=== PATIENT | female | born 1950 | race Caucasian/White ===

== ENCOUNTER → 2016-12-21 | Outpatient (CLI) | payer MEDICARE ==
--- NOTE | 2016-12-22 10:00 | MM ---
Reason for exam: screening (asymptomatic). Last mammogram was performed 1 year ago. History: Patient is postmenopausal. Family history of breast cancer in mother at age 57. Physical Findings: A clinical breast exam by your physician is recommended on an annual basis and results should be correlated with mammographic findings. MG 3D Screening Mammo W/Cad Bilateral CC and MLO view(s) were taken. Prior study comparison: December 20, 2015, bilateral MG screening mammo w CAD. October 03, 2014, bilateral MG screening mammo w CAD. The breast tissue is heterogeneously dense. This may lower the sensitivity of mammography. Finding: There are typically benign calcifications in both breasts. No significant changes in finding since December 20, 2015 and October 03, 2014. ASSESSMENT: Benign, BI-RAD 2 RECOMMENDATION: Routine screening mammogram of both breasts in 1 year.
== END | disposition home or self-care (01) ==
LOC: RADMAMWWP 11:13
PROVIDERS: ATTEND Family Medicine
DX: Z12.31 Encounter for screening mammogram for malignant neoplasm of breast (principal)
CPT/HCPCS: 77063; G0202

== ENCOUNTER → 2017-03-19 | Outpatient (CLI) | payer MEDICARE ==
--- NOTE | 2017-03-19 13:41 | US ---
EXAMINATION TYPE: US abdomen complete DATE OF EXAM: 03/19/2017 COMPARISON: NONE CLINICAL HISTORY: R10.84 Generalized Abdominal Pain. Pain EXAM MEASUREMENTS: Liver Length: 15.9 cm Gallbladder Wall: Surgically absent cm CBD: 0.25 cm Spleen: 13 cm Right Kidney: 9.3 x 5.3 x 4.3 cm Left Kidney: 11.1 x 5.6 x 4.7 cm x Pancreas: Obscured by bowel gas Liver: wnl Gallbladder: Surgically absent CBD: wnl Spleen: wnl Right Kidney: wnl Left Kidney: wnl Upper IVC: wnl Abd Aorta: wnl The liver is homogenous. The intrahepatic portion of the IVC and visualized abdominal aorta are with in normal limits. Gallbladder is surgically absent. Common bile duct is unremarkable. The pancreas is suboptimally evaluated on images saved secondary to shadowing from overlying bowel gas per technol ogist. The spleen is upper limits of normal in size, no suspicious focal intrasplenic masses seen. Kidneys are symmetric and free of hydronephrosis. No renal lesions are seen. IMPRESSION: No suspicious finding is seen to account for patient's symptoms.
--- NOTE | 2017-03-19 15:08 | US ---
EXAMINATION TYPE: US pelvis limited transvag DATE OF EXAM: 03/19/2017 COMPARISON: NONE CLINICAL HISTORY: R10.84 Generalized Abdominal Pain. Pain TECHNIQUE: Transvaginal (TV) and Transabdominal (TA) Date of LMP: 20 years ago EXAM MEASUREMENTS: Uterus: Surgically absent cm Endometrial Stripe: Surgically absent cm Right Ovary: Not visualized due to bowel gas. cm Left Ovary: Not visualized due to bowel gas. cm 1. Uterus: Surgically absent 2. Endometrium: Surgically absent 3. Right Ovary: Obscured by overlying bowel gas 4. Left Ovary: Obscured by overlying bowel gas Spectral, color and waveform doppler imaging shows good arterial and venous flow within the ovaries ; there is no evidence for ovarian torsion. 5. Bilateral Adnexa: wnl 6. Posterior cul-de-sac: wnl Uterus is surgically absent. No free fluid is seen in pelvis. No concerning adnexal masses are identi fied. Neither ovary is clearly seen. IMPRESSION: Unremarkable study.
== END | disposition home or self-care (01) ==
LOC: RADUSWWP 12:20
PROVIDERS: ATTEND Internal Medicine
DX: R10.84 Generalized abdominal pain (principal)
CPT/HCPCS: 76700; 76830; 76856; 76857

== ENCOUNTER 2017-03-20 04:15 | Emergency (ER) | payer MEDICARE ==
--- NOTE | 2017-03-20 05:05 | ED ---
Abdominal Pain HPI - General Chief Complaint: Abdominal Pain Stated Complaint: unable to have BM Time Seen by Provider: 03/20/17 04:27 Source: patient Mode of arrival: wheelchair Limitations: no limitations - History of Present Illness Initial Comments: This patient is a 66-year-old woman who presents with complaint of diffuse abdominal pain and constipation. The patient states that she has not had a bowel movement since Wednesday. She is relating this to change her medication, she had been taking Celebrex, stopped that and started taking Mobic. She states that since that time she has not had a bowel movement she states she had been passing gas but does not recall passing any over the course of the last few hours. She has not had vomiting though she is having some nausea. Patient describes the abdominal pain as coming in waves. She states that it will get moderately severe. She indicates all across the lower abdomen, and that is crampy gassy feeling. She has not noticed anything that seems to worsen or relieve it. MD Complaint: abdominal pain Onset/Timin -: week(s) Location: diffuse Radiation: none Severity: moderate Quality: cramping Consistency: intermittent, colicky Improves With: nothing Worsens With: nothing Associated Symptoms: nausea, constipation - Related Data Home Medications Medication Instructions Recorded Confirmed Cyanocobalamin [Vitamin B-12] 500 mcg PO DAILY 08/31/16 09/02/16 Cyclobenzaprine [Flexeril] 5 mg PO TID PRN 08/31/16 09/02/16 Vit C/E/Zn/Coppr/Lutein/Zeaxan 1 cap PO DAILY 08/31/16 09/02/16 [Preservision Areds 2 Softgel] Red Yeast Rice 600 mg PO BID 09/02/16 09/02/16 Previous Rx's Medication Instructions Recorded Atenolol [Tenormin] 12.5 mg PO HS #30 tab 09/07/16 Gabapentin [Neurontin] 600 mg PO BID #0 09/07/16 traMADol HCL [Ultram] 50 mg PO Q6HR PRN #120 tab 09/07/16 Allergies Allergy/AdvReac Type Severity Reaction Status Date / Time ciprofloxacin [From Cipro] Allergy Rash/Hives Verified 03/20/17 04:22 Penicillins Allergy Rash/Hives Verified 03/20/17 04:22 acetaminophen [From Tylenol] AdvReac doesn't Verified 03/20/17 04:22 provide any effect @all codeine AdvReac Hallucinati Verified 03/20/17 04:22 ons meperidine [From Demerol] AdvReac doesn't Verified 03/20/17 04:22 provide any effect @all Review of Systems ROS Statement: Those systems with pertinent positive or pertinent negative responses have been documented in the HPI. ROS Other: All systems not noted in ROS Statement are negative. Constitutional: Denies: fever, chills Respiratory: Denies: cough, dyspnea Cardiovascular: Denies: chest pain, edema Gastrointestinal: Reports: abdominal pain, nausea, constipation. Denies: vomiting, diarrhea, melena, hematochezia Genitourinary: Denies: dysuria, hematuria Musculoskeletal: Reports: back pain (Chronic back pain) Skin: Denies: rash Neurological: Denies: headache, weakness, numbness Past Medical History Past Medical History: Hypertension, Musculoskeletal Disorder, Osteoarthritis (OA ), Sleep Apnea/CPAP/BIPAP Additional Past Medical History / Comment(s): sciatica down right leg, past hx. sleep apnea, scoliosis History of Any Multi-Drug Resistant Organisms: None Reported Past Surgical History: Appendectomy, Back Surgery, Section, Cholecystectomy, Hysterectomy, Orthopedic Surgery, Tonsillectomy Additional Past Surgical History / Comment(s): surg. for sleep apnea, carpal tunnel elliott., multi level thoracic spinal fusion for scoliosis Past Anesthesia/Blood Transfusion Reactions: No Reported Reaction Additional Past Anesthesia/Blood Transfusion Reaction / Comment(s): can't have spinals Past Psychological History: No Psychological Hx Reported Smoking Status: Never smoker Past Alcohol Use History: None Reported Past Drug Use History: None Reported - Past Family History Mother Family Medical History: Cancer Brother(s) Family Medical History: No Reported History Father Family Medical History: Diabetes Mellitus Daughter(s) Family Medical History: Cancer (uterine) Sister(s) Family Medical History: No Reported History General Exam Limitations: no limitations General appearance: alert, in no apparent distress Head exam: Present: atraumatic, normocephalic Eye exam: Present: normal appearance. Absent: scleral icterus, conjunctival injection ENT exam: Present: mucous membranes dry Respiratory exam: Present: normal lung sounds bilaterally. Absent: respiratory distress, wheezes, rales, rhonchi, stridor Cardiovascular Exam: Present: regular rate, normal rhythm, normal heart sounds. Absent: systolic murmur, diastolic murmur, rubs, gallop GI/Abdominal exam: Present: soft, hyperactive bowel sounds, hernia (Patient does have an umbilical hernia which is nontender and reducible.). Absent: distended, tenderness, guarding, rebound, rigid, mass Extremities exam: Present: normal inspection, normal capillary refill. Absent: pedal edema, calf tenderness Back exam: Present: other (Well-healed, remote surgical scar running the length of the vertebra.) Neurological exam: Present: alert Skin exam: Present: warm, dry, intact, normal color. Absent: rash Course Vital Signs 03/20/17 03/20/17 04:17 06:46 Temperature 98.3 F 98.2 F Pulse Rate 73 78 Respiratory 20 16 Rate Blood Pressure 139/65 137/62 O2 Sat by Pulse 99 98 Oximetry Disposition Clinical Impression: Constipation Disposition: HOME SELF-CARE Condition: Good Instructions: Constipation (ED) Referrals: Flex Harper MD [Primary Care Provider] - 1-2 days
--- NOTE | 2017-03-20 05:55 | XR ---
EXAM: Acute abdominal series. INDICATION: 66-year-old female with pain. COMPARISON: None. FINDINGS: Upright frontal view of the chest and upright and supine frontal views of the abdomen are reviewed. The lungs are clear. The cardiac and mediastinal contours are normal. No evidence of extraluminal air under the diaphragms. The abdominal films demonstrate a normal bowel gas pattern. No bowel distention or suspicious air-fluid levels. No evidence of organomegaly, abnormal calcifications or obvious soft tissue masses. Surgical changes in the spine. There is S-shaped scoliotic curvature of the thoracolumbar spine. Surgical clips are present. Pelvic phleboliths are present. IMPRESSION: Nonspecific, nonobstructive bowel gas pattern.
[2017-03-20 07:59] VITALS: BP 130/73; PULSE 76; RESP 18; TEMP 98
== END 2017-03-20 07:50 | disposition home or self-care (01) ==
LOC: EC 04:15
DX: K59.00 Constipation, unspecified (principal); Z90.49 Acquired absence of other specified parts of digestive tract; Z88.0 Allergy status to penicillin; Z88.1 Allergy status to other antibiotic agents; Z88.6 Allergy status to analgesic agent; Z88.5 Allergy status to narcotic agent; Z79.899 Other long term (current) drug therapy
CPT/HCPCS: 74022; 99284

== ENCOUNTER 2017-05-13 14:21 | Inpatient (IN) | payer MEDICARE ==
--- NOTE | 2017-05-13 14:42 | ED ---
Back Pain HPI - General Chief Complaint: Back Pain/Injury Stated Complaint: Back Pain Source: patient, EMS Limitations: no limitations - History of Present Illness Initial Comments: Patient is a 66-year-old female who presents for evaluation for acute on chronic back pain. Past medical history as below. Patient has a known history of chronic back pain. She is followed by Dr. Storey. Has a history of thoracic and lumbar spinal fusions. Last procedure was 2015. Over the past month, she's been having frequent exacerbations of her chronic back pain. She was placed on tramadol Flexeril earlier this month. Had issues with constipation which was relieved. Softeners. A few weeks ago, her surgeon recommended physical therapy which she's been trying. However, the back pain is worsened. She was then put on [place], Neurontin and Flexeril and states that she has had minimal relief. She also states that she's been having back spasms. Worse with a sitting to standing position. She also describes having a burning sensation in her buttocks which sometimes tracks down her legs. Her symptoms are not new. She states that they're simply worse. She amulet with a walker. Today, she was attempting to ambulate and she had a exacerbation of her pain. Her asked if she wanted to come to the emergency department by driving their vehicle and she stated that the ambulance needed to come as she can felt that she cannot walk. She denies any fevers. No night sweats. No numbness to the groin. No urinary retention or incontinence. No stool incontinence. No new numbness or tingling or weakness down her extremities. She also denies headaches, URI symptoms, short of breath, cough, chest pain, nausea, vomiting, diarrhea, pain or burning with urination. - Related Data Home Medications Medication Instructions Recorded Confirmed Cyanocobalamin [Vitamin B-12] 500 mcg PO DAILY 08/31/16 09/02/16 Cyclobenzaprine [Flexeril] 5 mg PO TID PRN 08/31/16 09/02/16 Vit C/E/Zn/Coppr/Lutein/Zeaxan 1 cap PO DAILY 08/31/16 09/02/16 [Preservision Areds 2 Softgel] Red Yeast Rice 600 mg PO BID 09/02/16 09/02/16 Previous Rx's Medication Instructions Recorded Atenolol [Tenormin] 12.5 mg PO HS #30 tab 09/07/16 Gabapentin [Neurontin] 600 mg PO BID #0 09/07/16 traMADol HCL [Ultram] 50 mg PO Q6HR PRN #120 tab 09/07/16 Methocarbamol [Robaxin] 1,000 mg PO TID PRN #4 tab 05/13/17 Allergies Allergy/AdvReac Type Severity Reaction Status Date / Time ciprofloxacin [From Cipro] Allergy Rash/Hives Verified 05/13/17 15:01 Penicillins Allergy Rash/Hives Verified 05/13/17 15:01 acetaminophen [From Tylenol] AdvReac doesn't Verified 05/13/17 15:01 provide any effect @all codeine AdvReac Hallucinati Verified 05/13/17 15:01 ons meperidine [From Demerol] AdvReac doesn't Verified 05/13/17 15:01 provide any effect @all Review of Systems ROS Statement: Those systems with pertinent positive or pertinent negative responses have been documented in the HPI. ROS Other: All systems not noted in ROS Statement are negative. Past Medical History Past Medical History: Hypertension, Musculoskeletal Disorder, Osteoarthritis (OA ), Sleep Apnea/CPAP/BIPAP Additional Past Medical History / Comment(s): sciatica down right leg, past hx. sleep apnea, scoliosis History of Any Multi-Drug Resistant Organisms: None Reported Past Surgical History: Appendectomy, Back Surgery, Section, Cholecystectomy, Hysterectomy, Orthopedic Surgery, Tonsillectomy Additional Past Surgical History / Comment(s): surg. for sleep apnea, carpal tunnel elliott., multi level thoracic spinal fusion for scoliosis Past Anesthesia/Blood Transfusion Reactions: No Reported Reaction Additional Past Anesthesia/Blood Transfusion Reaction / Comment(s): can't have spinals Past Psychological History: No Psychological Hx Reported Smoking Status: Never smoker Past Alcohol Use History: None Reported Past Drug Use History: None Reported - Past Family History Mother Family Medical History: Cancer Brother(s) Family Medical History: No Reported History Father Family Medical History: Diabetes Mellitus Daughter(s) Family Medical History: Cancer (uterine) Sister(s) Family Medical History: No Reported History General Exam Limitations: no limitations General appearance: alert, in no apparent distress, other Head exam: Present: atraumatic, normocephalic, normal inspection Eye exam: Present: normal appearance, PERRL, EOMI. Absent: scleral icterus, conjunctival injection, periorbital swelling ENT exam: Present: normal exam, mucous membranes moist Neck exam: Present: normal inspection. Absent: tenderness, meningismus, lymphadenopathy Respiratory exam: Present: normal lung sounds bilaterally. Absent: respiratory distress, wheezes, rales, rhonchi, stridor Cardiovascular Exam: Present: regular rate, normal rhythm, normal heart sounds. Absent: systolic murmur, diastolic murmur, rubs, gallop, clicks GI/Abdominal exam: Present: soft, normal bowel sounds. Absent: distended, tenderness, guarding, rebound, rigid Extremities exam: Present: normal inspection, full ROM, normal capillary refill. Absent: tenderness, pedal edema, joint swelling, calf tenderness Back exam: Present: normal inspection Neurological exam: Present: alert, oriented X3, CN II-XII intact, reflexes normal, other (Sensation intact in the lower chimneys bilaterally. Normal L4 S1 reflexes. Good, equal strength to the lower chimneys bilaterally.) Psychiatric exam: Present: normal affect, normal mood Skin exam: Present: warm, dry, intact, normal color. Absent: rash Course Vital Signs 05/13/17 14:37 Temperature 98.2 F Pulse Rate 82 Respiratory 18 Rate Blood Pressure 144/65 O2 Sat by Pulse 98 Oximetry Medical Decision Making - Medical Decision Making 1440: Patient is a 66-year-old female with acute on chronic low back pain. Known history of this. No signs or symptoms concerning for cauda equina/ infectious etiology of back pain at this time. Offered the patient pain medications and reevaluation. She is amenable to this. We'll order 0.5 mg IV Dilaudid, thousand milligrams by mouth Robaxin, 15 mg IV Toradol and close reevaluation. 1535: Reevaluated the patient. She states that her pain was much improved. Has not attempted to sit up or walk yet though. Will give another 15 minutes as she just received her medications about 15 minutes ago. 1555: Reevaluated the patient. She sitting upright in bed. She states that she is having "spasms "to her low back. It radiates down her leg which is typical of her symptoms over the past month. Missed her dose of Neurontin. We' ll take her home dose as she has the pills with her. Cannot order a CT as she has metal in her back. We'll order plain films. We'll also order basic labs with ESR and reevaluate. 1645: Reviewed plain films. No hardware failure per radiology. No other acute fracture dislocation. Reevaluated the patient and she continues to have severe pain. Ordered an additional 0.5 mg IV Dilaudid. Patient also took her home Neurontin dose which she just took. We'll continue to closely evaluate. She has an appointment with her spine doctor tomorrow. Stated if we cannot get her pain under control may need observation for pain management. 1705: Reevaluated the patient. She just received her pain shot. Had a lengthy discussion about the benefits of staying for pain control versus going to see her specialist tomorrow we will be able to provide her more long-term relief. Will reevaluate in the next 15-20 minutes that she just received her shot. 1735: Spoke with Dr. López -requesting 60 mg IV Solu-Medrol, MRI lumbar spine with IV contrast and observation to his service. Concern for discitis versus vertebral osteomyelitis as patient has an elevated ESR. We'll also order every 4 hours neuro checks. Pain medications. Discussed with the patient and comfortable with observation. - Lab Data Result diagrams: 05/13/17 16:00 05/13/17 16:00 Lab Results 05/13/17 05/13/17 Range/Units 16:00 16:00 WBC 6.6 (3.8-10.6) k/uL RBC 4.11 (3.80-5.40) m/uL Hgb 11.5 (11.4-16.0) gm/dL Hct 34.3 (34.0-46.0) % MCV 83.3 (80.0-100.0) fL MCH 27.9 (25.0-35.0) pg MCHC 33.5 (31.0-37.0) g/dL RDW 14.1 (11.5-15.5) % Plt Count 433 (150-450) k/uL Neutrophils % 69 % Lymphocytes % 22 % Monocytes % 7 % Eosinophils % 1 % Basophils % 0 % Neutrophils # 4.6 (1.3-7.7) k/uL Lymphocytes # 1.4 (1.0-4.8) k/uL Monocytes # 0.5 (0-1.0) k/uL Eosinophils # 0.0 (0-0.7) k/uL Basophils # 0.0 (0-0.2) k/uL ESR 83 H (0-20) mm/hr Sodium 140 (137-145) mmol/L Potassium 3.9 (3.5-5.1) mmol/L Chloride 102 (98-107) mmol/L Carbon Dioxide 28 (22-30) mmol/L Anion Gap 10 mmol/L BUN 10 (7-17) mg/dL Creatinine 0.52 (0.52-1.04) mg/dL Est GFR (MDRD) Af Amer >60 (>60 ml/min/1.73 sqM) Est GFR (MDRD) Non-Af >60 (>60 ml/min/1.73 sqM) Glucose 98 (74-99) mg/dL Calcium 8.8 (8.4-10.2) mg/dL Total Bilirubin 0.7 (0.2-1.3) mg/dL AST 21 (14-36) U/L ALT 22 (9-52) U/L Alkaline Phosphatase 111 (38-126) U/L Total Protein 6.9 (6.3-8.2) g/dL Albumin 3.5 (3.5-5.0) g/dL Disposition Clinical Impression: Acute exacerbation of chronic low back pain, Intractable pain Disposition: ADMITTED IP TO THIS HOSP Condition: Good Prescriptions: Methocarbamol [Robaxin] 1,000 mg PO TID PRN #4 tab PRN Reason: pain Referrals: Flex Harper MD [Primary Care Provider] - 1-2 days Decision to Admit Reason: Admit from [facility]
[2017-05-13] MEDS ORDERED: KETOROLAC 30 MG/ML 1 ML VIAL IVP STA (15:05)
[2017-05-13] MEDS ORDERED: HYDROmorphone 1 MG/ML 1 ML SYRINGE IVP STA ×2 (15:05→16:28)
[2017-05-13] MEDS ORDERED: METHOCARBAMOL 500 MG TAB PO STA (15:07)
[2017-05-13 16:19] LABS: Basophils % (A) 0 %; CH 27.2; CHCM 32.7; Eosinophils % (A) 1 %; HCT 34.3 % (34.0-46.0); HDW 2.49; HGB 11.5 gm/dL (11.4-16.0); Luc % (Auto) 1; Lymphocytes # (A) 1.4 k/uL (1.0-4.8); Lymphocytes % (A) 22 %; MCH 27.9 pg (25.0-35.0); MCHC 33.5 g/dL (31.0-37.0); MCV 83.3 fL (80.0-100.0); Mean Platelet Volume 6.4; Monocytes # (A) 0.5 k/uL (0-1.0); Monocytes % (A) 7 %; Neutrophils # (A) 4.6 k/uL (1.3-7.7); Neutrophils % (A) 69 %; RBC 4.11 m/uL (3.80-5.40); RDW 14.1 % (11.5-15.5); WBC 6.6 k/uL (3.8-10.6); WBC (Perox) 6.84
[2017-05-13 16:28] LABS: Anion Gap 10 mmol/L; Blood Urea Nitrogen 10 mg/dL (7-17); Calcium 8.8 mg/dL (8.4-10.2); Carbon Dioxide 28 mmol/L (22-30); Chloride 102 mmol/L (98-107); Glucose 98 mg/dL (74-99); Non-African American GFR(MDRD) >60 (>60 ml/min/1.73 sqM); Potassium 3.9 mmol/L (3.5-5.1); Sodium 140 mmol/L (137-145); Total Protein 6.9 g/dL (6.3-8.2)
[2017-05-13 16:29] LABS: ALT 22 U/L (9-52); AST 21 U/L (14-36); Alkaline Phosphatase 111 U/L (38-126); Total Bilirubin 0.7 mg/dL (0.2-1.3)
--- NOTE | 2017-05-13 16:29 | XR ---
EXAMINATION TYPE: XR lumbar spine 2 or 3V DATE OF EXAM: 05/13/2017 CLINICAL HISTORY: Onset of lobe pain. Lumbar fusion in 2016. TECHNIQUE: Frontal and lateral images of the lumbar spine are obtained. COMPARISON: None FINDINGS: There is surgical fusion of L2-L5 with no evidence of hardware failure, loosening, or fract ure. Intervertebral disc cages are present at L3-L4 and L4-L5, intervertebral disc space narrowing is seen at L1-L2 and to a lesser degree at T12-L1. There is postsurgical osseous fusion of L2-L3. There is no evidence of malalignment or compression deformity. Facet arthropathy is present throughout the lumbar spine. IMPRESSION: 1. No acute fracture, dislocation, or hardware failure within the surgically fused lumbar spine. 2. Degenerative changes of L1-L2 and L5-S1 above and below the fused sites.
[2017-05-13 17:11] LABS: Erythrocyte Sedimentation Rate 83 mm/hr (0-20)
[2017-05-13] MEDS ORDERED: NALOXONE 0.4 MG/ML 1 ML VIAL IV PRN (17:44)
[2017-05-13] MEDS ORDERED: methylPREDNISolone SOD SUCCI 125 MG/2 ML VIAL IV STA (17:46)
[2017-05-13] MEDS: HYDROmorphone 1 MG/ML 1 ML SYRINGE IVP PRN (20:33)
[2017-05-13] MEDS: methylPREDNISolone SOD SUCCI 125 MG/2 ML VIAL IV SCH (21:45)
[2017-05-13] MEDS: GABAPENTIN 300 MG CAP PO SCH (21:46)
[2017-05-14] MEDS: HYDROcodone/APAP 5-325MG 1 EACH TAB PO PRN ×2 (00:15→21:07)
[2017-05-14] MEDS: SODIUM CHLORIDE 0.9% 1,000 ML IV SCH ×2 (00:18→22:44)
[2017-05-14] MEDS: HYDROmorphone 1 MG/ML 1 ML SYRINGE IVP PRN ×3 (01:20→23:52)
[2017-05-14 06:59] LABS: Basophils % (A) 0 %; CHCM 32.4; Eosinophils % (A) 0 %; HCT 36.4 % (34.0-46.0); HDW 2.38; HGB 11.5 gm/dL (11.4-16.0); Luc # (Auto) 0.03; Luc % (Auto) 1; Lymphocytes # (A) 0.7 k/uL (1.0-4.8); Lymphocytes % (A) 16 %; MCH 27.5 pg (25.0-35.0); MCHC 31.7 g/dL (31.0-37.0); MCV 86.6 fL (80.0-100.0); Mean Platelet Volume 6.8; Monocytes # (A) 0.1 k/uL (0-1.0); Monocytes % (A) 2 %; Neutrophils # (A) 3.8 k/uL (1.3-7.7); Neutrophils % (A) 81 %; RDW 14.7 % (11.5-15.5); WBC 4.7 k/uL (3.8-10.6); WBC (Perox) 5.18
[2017-05-14 07:12] LABS: Anion Gap 8 mmol/L; Blood Urea Nitrogen 12 mg/dL (7-17); Calcium 9.1 mg/dL (8.4-10.2); Carbon Dioxide 27 mmol/L (22-30); Chloride 104 mmol/L (98-107); Glucose 149 mg/dL (74-99); Non-African American GFR(MDRD) >60 (>60 ml/min/1.73 sqM); Potassium 4.7 mmol/L (3.5-5.1); Sodium 139 mmol/L (137-145)
--- NOTE | 2017-05-14 08:51 | P.HPOR ---
History of Present Illness H&P Date: 05/14/17 Chief Complaint: Low back pain, lower extremity radiculopathy, thoracolumbar muscle spasms Patient is a very pleasant 66-year-old female who is very well known to our service who is seen and examined at the bedside for further evaluation for ongoing low back pain, muscle spasms, lower extremity radiculopathy, and difficulty with ambulation. She is known have a previous thoracic lumbar fusion down to L2 and a recent posterior lateral decompression and fusion L2-L5 with transforaminal lumbar interbody fusion L3-4 and L4-5 performed on 2015. Patient has continued to be seen and examined in our office for further evaluation. Postsurgically she had been improving over the first few months. Over the last few months she has been having an increase in her symptoms. She states at the bedside she's been having significant left-sided low back pain that can extend all across the low back and wrap around towards the abdomen. She states she has a burning sensation in the bilateral buttocks that radiates down the lateral thighs stopping at the knees. She experiences numbness in the bilateral feet as well. She's had significant difficulty with ambulation. She has now been ambulating with the assistance of a walker over the past week or so. She states she is able to stand with a walker without significant difficulty but trying to ambulate initiates significant muscle spasms in the lumbar spine. She has significant difficulty with sitting from a lying position. She states she has been unable to control her pain at home. She was scheduled to be seen and examined in our office this morning but was unable to make this appointment due to her pain and presented to the emergency department yesterday. While in the emergency department, she was given Dilaudid, Toradol, and Robaxin without significant relief of her symptoms. Lab testing also showed an elevation of ESR. Patient was admitted to our service for further evaluation and treatment. An MRI of the lumbar spine has been ordered with and without contrast. This MRI scheduled to be performed today at 2:50 PM. Patient is claustrophobic. We will plan to order Valium 5 mg 1-2 tabs prior to her scheduled MRI. X-ray imaging in the emergency department also showed no evidence of acute change in hardware or evidence of acute fracture. Upon admittance, patient has been started on Solu-Medrol 60 mg every 12 hours. Patient states at the bedside since her admittance she has not had any significant relief of her symptoms. She has significant difficulty trying to sit. She has remained lying in bed. She states she is able to move her legs but her radiculopathy symptoms and low back pain prohibit her from being able to move very easily. She denies any recent falls, accidents or injuries. Past Medical History Past Medical History: Hypertension, Musculoskeletal Disorder, Osteoarthritis (OA ), Sleep Apnea/CPAP/BIPAP Additional Past Medical History / Comment(s): sciatica down right leg, past hx. sleep apnea, scoliosis History of Any Multi-Drug Resistant Organisms: None Reported Past Surgical History: Appendectomy, Back Surgery, Section, Cholecystectomy, Hysterectomy, Orthopedic Surgery, Tonsillectomy Additional Past Surgical History / Comment(s): surg. for sleep apnea, carpal tunnel elliott., multi level thoracic spinal fusion for scoliosis Past Anesthesia/Blood Transfusion Reactions: No Reported Reaction Additional Past Anesthesia/Blood Transfusion Reaction / Comment(s): can't have spinals Past Psychological History: No Psychological Hx Reported Smoking Status: Never smoker Past Alcohol Use History: None Reported Past Drug Use History: None Reported - Past Family History Mother Family Medical History: Cancer Brother(s) Family Medical History: No Reported History Father Family Medical History: Diabetes Mellitus Daughter(s) Family Medical History: Cancer Sister(s) Family Medical History: No Reported History Medications and Allergies Home Medications Medication Instructions Recorded Confirmed Type Vit C/E/Zn/Coppr/Lutein/Zeaxan 1 cap PO BID 08/31/16 05/13/17 History [Preservision Areds 2 Softgel] Red Yeast Rice 600 mg PO DAILY 09/02/16 05/13/17 History Atenolol [Tenormin] 50 mg PO BID 05/13/17 05/13/17 History Celecoxib [CeleBREX] 200 mg PO DAILY 05/13/17 05/13/17 History Cholecalciferol [Vitamin D3] 5,000 unit PO DAILY 05/13/17 05/13/17 History Cyanocobalamin (Vitamin B-12) 2,500 mcg PO DAILY 05/13/17 05/13/17 History [Vitamin B12] Cyclobenzaprine [Flexeril] 10 mg PO Q8H 05/13/17 05/13/17 History Gabapentin [Neurontin] 300 mg PO Q8H 05/13/17 05/13/17 History HYDROcodone/APAP 5-325MG [[place] 1 tab PO Q8H 05/13/17 05/13/17 History 5-325] Allergies Allergy/AdvReac Type Severity Reaction Status Date / Time ciprofloxacin [From Cipro] Allergy Rash/Hives/ Verified 05/13/17 18:12 Dyspnea Penicillins Allergy Rash/Hives Verified 05/13/17 18:12 acetaminophen [From Tylenol] AdvReac doesn't Verified 05/13/17 15:01 provide any effect @all codeine AdvReac Hallucinati Verified 05/13/17 18:12 ons meperidine [From Demerol] AdvReac doesn't Verified 05/13/17 15:01 provide any effect @all Physical Examination Physical Exam Lumbar Fusion: Patient is awake, alert, and oriented 3 Vital signs stable Good chest excursion with deep inspiration and expiration Abdomen soft nontender Dorsiflexion, plantarflexion, and extensor hallucis longus positive sustained bilaterally No signs or symptoms of DVT; no calf pain Evidence of well-healed incisions over the thoracic and lumbar spines No significant pain with palpation over the incision sites Some pain on palpation the left lower lumbar spine Examination of the skin of the thoracic and lumbar spines shows no evidence of erythema, ecchymosis, swelling, or obvious sign of infection Vascular intact bilateral lower extremities Patient is able to move lower extremities independently throughout range of motion while lying in bed without significant pain but movements are slow No pain with internal and external rotation of the hips Results Pertinent studies: X-ray of the lumbar spine: Kenneth and screws appear to be in good alignment and good position L2-5; transforaminal lumbar interbody fusions appear to be in good placement L3-4 and L4-5; hardware appears to be well secure with some evidence of bony fusion and the posterior lateral gutters and no evidence of hardware fracture, loosening, or fatigue; evidence of previous lower thoracic fusion down to L2 - Labs Labs: Abnormal Lab Results - Last 24 Hours (Table) 05/13/17 05/14/17 05/14/17 Range/Units 16:00 06:30 06:30 Lymphocytes # 0.7 L (1.0-4.8) k/uL ESR 83 H (0-20) mm/hr Glucose 149 H (74-99) mg/dL H & H 05/13/17 05/14/17 Range/Units 16:00 06:30 Hgb 11.5 11.5 (11.4-16.0) gm/dL Hct 34.3 36.4 (34.0-46.0) % Result Diagrams: 05/14/17 06:30 05/14/17 06:30 Assessment and Plan (1) Spasm of lumbar paraspinous muscle Status: Acute (2) Paresthesia of both feet Status: Acute (3) Claustrophobia Status: Acute (4) Acute exacerbation of chronic low back pain Status: Acute (5) History of fusion of spine for scoliosis Status: Acute (6) Radiculopathy with lower extremity symptoms Status: Acute (7) Status post lumbar spinal fusion Status: Acute Plan: Assessment: Acute on chronic low back pain Elevated ESR; will evaluate for possible discitis versus osteomyelitis Significant difficulty with ambulation Lower extremity radiculopathy Lower extremity paresthesia Muscle spasms of the thoracolumbar spine Posterior lateral decompression and fusion L2-5 Transforaminal lumbar interbody fusion L3-4 and L4-5 Claustrophobia Plan: 1. Patient is currently scheduled for an MRI of the lumbar spine with and without contrast to be performed this afternoon at approximately 2:50 PM. Patient has claustrophobia. We will currently order Valium 5 mg 1-2 tabs prior to her scheduled MRI. We will continue with pain medication as prescribed with oral [place] 5 mg/325 mg 1 tab every 4 hours and IV Dilaudid 0.5 mg to 1 mg IV every 4 hours. We will also continue Solu-Medrol 60 mg every 12 hours. We will follow up with the patient for further evaluation after the completion of the MRI of the lumbar spine with and without contrast. We will continue to follow the patient closely. Dr. Juan Daniel López is aware of the patient's current status and admittance. I will discuss this patient in further detail with him. Time with Patient: Greater than 30
[2017-05-14] MEDS: ATENOLOL 50 MG TAB PO SCH (09:21)
[2017-05-14] MEDS: GABAPENTIN 300 MG CAP PO SCH ×3 (09:21→19:14)
[2017-05-14] MEDS: methylPREDNISolone SOD SUCCI 125 MG/2 ML VIAL IV SCH ×2 (09:22→23:53)
[2017-05-14] MEDS: MELOXICAM 7.5 MG TAB PO SCH (09:22)
[2017-05-14 09:26] LABS: C Reactive Protein 53.1 mg/L (<10.0)
[2017-05-14 11:11] LABS: Erythrocyte Sedimentation Rate 71 mm/hr (0-20)
[2017-05-14 11:34] LABS: Glucose,Whole Blood 128 mg/dL (75-99)
[2017-05-14] MEDS ORDERED: DIAZEPAM 5 MG TAB PO PRN (14:00)
[2017-05-14] MEDS: HYDROmorphone 1 MG/ML 1 ML SYRINGE IV PRN ×2 (14:05→18:49)
--- NOTE | 2017-05-14 19:42 | MR ---
EXAMINATION TYPE: MR lumbar spine wo/w con DATE OF EXAM: 05/14/2017 COMPARISON: Plain film 05/13/2017 HISTORY: Acute low back pain, prior surgery 2016 TECHNIQUE: Multiplanar, multisequence images of the lumbar spine were acquired utilizing 20 mL intravenous Multi Megan gadolinium contrast. L1-L2: Abnormal signal is present within the L1 vertebral body, low signal is seen on T1-weighted melania ges, increased signal on T2-weighted sequences. The inferior endplate shows erosion and there is enha ncement along the disc space as well as a focal area of erosion. The screw on the patient's right at the L2 level extends into the disc space and inferior endplate of L1. Circumferential posterior broad -based disc bulge causes some mild anterior mass effect on the thecal sac. There is facet arthropathy encroaches somewhat on the lateral recesses. No definite foraminal encroachment. Suspect some parasp inal abnormal signal possibly infection extending into the paraspinal musculature bilaterally. L2-L3: Susceptibility artifact due to patient's hardware limits the evaluation. There is loss of disc height and signal, endplate discogenic marrow signal change is present. Right-sided foraminal encroa chment is suspected. Minimal retrolisthesis grade 1 L2-3. L3-L4: Susceptibility artifact due to patient's hardware limits evaluation. No definite spinal stenos is. Intervertebral spacing material present. There is loss of disc height and signal. Some right-side d foraminal encroachment is present. L4-L5: There is susceptibility artifact present. No definite spinal stenosis or foraminal encroachmen t on the left, there may be some foraminal encroachment on the right contributed by the spinal curvat ure. Postop changes are present. Intervertebral spacing material noted. There is loss of disc height and signal. There is some enhancement of granulation tissue posteriorly. L5-S1: Facet arthropathy is present. No definite foraminal encroachment present on the right, some fo raminal encroachment may be present on the left due to circumferential extension of endplate disc com plex. Patient is status post posterior lumbar fusion L2-L5. There is a spinal curvature present. No paraspi nal masses are identified. Conus medullaris has a normal appearance. There is a cyst associated with the left kidney. Some parapelvic cysts also suspected. IMPRESSION: Findings suggest discitis at L1-2. Paraspinal extension of infection is suspected. Probable osteomyel itis involving L1 vertebral body, possibly L2. Right-sided transpedicular screw extends into the disc space and likely inferior endplate of L1. Spinal curvature and additional findings above.
[2017-05-14] MEDS ORDERED: IV VANCOMYCIN PER PHARMACY 1 EACH MISC MISCELLANE PRN (21:00)
[2017-05-14] MEDS ORDERED: VANCOMYCIN 1,750 MG in SODIUM CHLORIDE 0.9% 250 ML IVPB ONE (21:30)
[2017-05-15] MEDS: HYDROcodone/APAP 5-325MG 1 EACH TAB PO PRN ×2 (02:11→07:24)
[2017-05-15] MEDS: HYDROmorphone 1 MG/ML 1 ML SYRINGE IVP PRN ×2 (04:22→08:24)
[2017-05-15] MEDS: VANCOMYCIN 1,500 MG in SODIUM CHLORIDE 0.9% 250 ML IVPB SCH ×2 (04:37→13:42)
[2017-05-15 05:18] LABS: CH 28.1; CHCM 32.7; HCT 34.9 % (34.0-46.0); HDW 2.46; HGB 10.9 gm/dL (11.4-16.0); MCH 26.9 pg (25.0-35.0); MCHC 31.2 g/dL (31.0-37.0); MCV 86.1 fL (80.0-100.0); Mean Platelet Volume 6.7; RBC 4.05 m/uL (3.80-5.40); RDW 14.7 % (11.5-15.5); WBC 11.2 k/uL (3.8-10.6)
[2017-05-15 05:35] LABS: Anion Gap 10 mmol/L; Blood Urea Nitrogen 12 mg/dL (7-17); Calcium 8.9 mg/dL (8.4-10.2); Carbon Dioxide 25 mmol/L (22-30); Chloride 103 mmol/L (98-107); Glucose 104 mg/dL (74-99); Non-African American GFR(MDRD) >60 (>60 ml/min/1.73 sqM); Potassium 3.5 mmol/L (3.5-5.1); Sodium 138 mmol/L (137-145)
[2017-05-15] MEDS ORDERED: predniSONE 20 MG TAB PO ONE (08:00)
[2017-05-15] MEDS: ATENOLOL 50 MG TAB PO SCH ×2 (08:14→23:01)
[2017-05-15] MEDS: GABAPENTIN 300 MG CAP PO SCH ×3 (08:14→23:02)
[2017-05-15] MEDS: MELOXICAM 7.5 MG TAB PO SCH (08:16)
[2017-05-15] MEDS: ONDANSETRON 4 MG/2 ML VIAL IVP PRN (09:39)
--- NOTE | 2017-05-15 09:52 | P.HPOR ---
History of Present Illness H&P Date: 05/15/17 Patient is seen and examined today at bedside. She is a very pleasant 66-year- old female who is well known to our service. She has had a long history of thoracic and lumbar spine issues and in the remote past had thoracolumbar fusion. More recently back in August approximately 9 months ago she underwent lumbar decompression and fusion with our service. The fusion extended up to L2. Her prior thoracic fusion had extended down to L2. She had initially done well with this procedure and was making good progress over the next several months after her surgery in August. However in March she started having some increasing pain in her back. She does not have any specific injury. She denies any specific illness. She says that the back pain has continued to get worse through mid March and into April. She was seen in our office and we attempted to treat her conservatively. There is no obvious change in her films or her hardware. There is no evidence of loosening or fracture. We will continue to see her but she had significant increase in pain in significant debility where she was unable to mobilize well. She presented to the emergency room and had evaluation. There she was found to have elevated sed rate. She is not having any fevers or chills but this helped lead towards further workup. Her white count has been normal she has remained afebrile but she did have an MRI yesterday evening which showed evidence of discitis at L1-2. There is evidence that the one of the pedicle screw does extend into the disc space at L1-2 as well. There is some enhancement at the bone as well as the paravertebral tissues. There is no apparent epidural abscess or significant compression of the neurologic structures. She is having significant pain at her back and some radicular symptoms toward her left anterior thigh. She does not have any new focal neurologic deficit. Review of Systems Currently she has significant nausea which she feels is due to the pain medications and antibiotic. She is not having any fevers. She denies any specific recent illness or travel. She has pain down toward her left lower extremity after anterior thigh particular with sitting up or trying to mobilize. She denies specific weakness. Past Medical History Past Medical History: Hypertension, Musculoskeletal Disorder (History of rectal lumbar fusion. She had remote history of fusion at her thoracic spine to L2 and more recent surgery approximately 9 months ago at her lumbar spine up to L2. There is hardware from L2 to L5), Osteoarthritis (OA), Sleep Apnea/CPAP/ BIPAP Additional Past Medical History / Comment(s): sciatica down right leg, past hx. sleep apnea, scoliosis History of Any Multi-Drug Resistant Organisms: None Reported Past Surgical History: Appendectomy, Back Surgery, Section, Cholecystectomy, Hysterectomy, Orthopedic Surgery, Tonsillectomy Additional Past Surgical History / Comment(s): surg. for sleep apnea, carpal tunnel elliott., multi level thoracic spinal fusion for scoliosis Past Anesthesia/Blood Transfusion Reactions: No Reported Reaction Additional Past Anesthesia/Blood Transfusion Reaction / Comment(s): can't have spinals Past Psychological History: No Psychological Hx Reported Smoking Status: Never smoker Past Alcohol Use History: None Reported Past Drug Use History: None Reported - Past Family History Mother Family Medical History: Cancer Brother(s) Family Medical History: No Reported History Father Family Medical History: Diabetes Mellitus Daughter(s) Family Medical History: Cancer Sister(s) Family Medical History: No Reported History Medications and Allergies Home Medications Medication Instructions Recorded Confirmed Type Vit C/E/Zn/Coppr/Lutein/Zeaxan 1 cap PO BID 08/31/16 05/13/17 History [Preservision Areds 2 Softgel] Red Yeast Rice 600 mg PO DAILY 09/02/16 05/13/17 History Atenolol [Tenormin] 50 mg PO BID 05/13/17 05/13/17 History Celecoxib [CeleBREX] 200 mg PO DAILY 05/13/17 05/13/17 History Cholecalciferol [Vitamin D3] 5,000 unit PO DAILY 05/13/17 05/13/17 History Cyanocobalamin (Vitamin B-12) 2,500 mcg PO DAILY 05/13/17 05/13/17 History [Vitamin B12] Cyclobenzaprine [Flexeril] 10 mg PO Q8H 05/13/17 05/13/17 History Gabapentin [Neurontin] 300 mg PO Q8H 05/13/17 05/13/17 History HYDROcodone/APAP 5-325MG [[place] 1 tab PO Q8H 05/13/17 05/13/17 History 5-325] Allergies Allergy/AdvReac Type Severity Reaction Status Date / Time ciprofloxacin [From Cipro] Allergy Rash/Hives/ Verified 05/13/17 18:12 Dyspnea Penicillins Allergy Rash/Hives Verified 05/13/17 18:12 acetaminophen [From Tylenol] AdvReac doesn't Verified 05/13/17 15:01 provide any effect @all codeine AdvReac Hallucinati Verified 05/13/17 18:12 ons meperidine [From Demerol] AdvReac doesn't Verified 05/13/17 15:01 provide any effect @all Physical Examination Osteopathic Statement: *. No significant issues noted on an osteopathic structural exam other than those noted in the History and Physical/Consult. - L Spine: dermatomal strength & reflexes bilateral Strength: hip flexion: 5/5 (At her back her thoracic and lumbar incisions. Be well-healed. There is no open wounds lacerations or abrasions. Her lower extremities she has sustained dorsal flexion plantar flexion and EHL intact. She has positive breakaway pain with hip flexion and knee extension but she is able to perform these activities. She has no clonus. Her thigh and calf are soft nontender. Her chest has good excursion deep inspection expiration her abdomen soft and nontender. She is having some nausea with palpation over her abdomen currently. She is no clonus. She has no neural tension signs.) Results - Labs Labs: Abnormal Lab Results - Last 24 Hours (Table) 05/14/17 05/14/17 05/15/17 Range/Units 06:30 11:21 05:03 WBC 11.2 H (3.8-10.6) k/uL Hgb 10.9 L (11.4-16.0) gm/dL ESR 71 H (0-20) mm/hr Glucose (74-99) mg/dL POC Glucose (mg/dL) 128 H (75-99) mg/dL 05/15/17 Range/Units 05:03 WBC (3.8-10.6) k/uL Hgb (11.4-16.0) gm/dL ESR (0-20) mm/hr Glucose 104 H (74-99) mg/dL POC Glucose (mg/dL) (75-99) mg/dL Microbiology - Last 24 Hours (Table) 05/14/17 00:13 Urine Culture - Preliminary Urine,Voided H & H 05/13/17 05/14/17 05/15/17 Range/Units 16:00 06:30 05:03 Hgb 11.5 11.5 10.9 L (11.4-16.0) gm/dL Hct 34.3 36.4 34.9 (34.0-46.0) % Result Diagrams: 05/15/17 05:03 05/15/17 05:03 - Diagnostic results Lumbar AP/lateral x-ray: report reviewed, image reviewed Lumbar MRI with/without contrast: report reviewed, image reviewed (Images of her lumbar spine with x-ray and with MRI are reviewed. I reviewed the reports as well. The hardware appears to be intact and unchanged from L2 to 5. The MRI shows the hardware intact there is evidence that the pedicle screw extenders into the disc space at L1-2. There is significant increased signal at L12 with local bony and soft tissue reaction. There is no apparent epidural abscess or syncope compression at the epidural space. There appears to be discitis at the L1-2 disc.) Assessment and Plan Plan: New discitis L1 to L2 Local soft tissue reaction and osteomyelitis L1-2 History of prior fusion thoracic spine down to L2 History of lumbar fusion L2 to 5 Retained hardware involving the L1-2 disc space Low back pain Inability to ambulate Radiculopathy over L2 on the left without neurologic deficit The patient's symptoms seem to stem from her new discitis at L1-2. We started some antibiotics last night and hopefully this will start to alleviate some of her pain symptoms. She is having significant nausea from her IV pain medications currently and we will start her on some antinausea medicines and try to convert her or for to orals which she has been able to tolerate at home. She will likely need long-term IV antibiotics for the discitis at L1-2. She does have involved hardware at L1-2 disc space and we can consider removing this hardware if it is felt necessary from infectious disease standpoint. Infectious disease has been counseled and will help with the antibiotic regimen plan as well as possible recreations towards need for removal of the hardware. I discussed this with the patient today at length. The remainder of the hardware appears to be satisfactory without involvement of the disc or infectious site. We could potentially remove the pedicle screw that enters into the disc space at L1-2 alone if necessary. We will see how she responds to the antibiotics for now. If she is having good response and symptoms medical improvement may be able to monitor this nonsurgically. We will certainly continue follow her closely. Time with Patient: Greater than 30
[2017-05-15] MEDS: CYCLOBENZAPRINE 10 MG TAB PO SCH ×2 (12:16→17:17)
[2017-05-15] MEDS: VIT A,C & E-LUTEIN-MINERALS 1 EACH TAB PO SCH ×2 (12:16→17:17)
[2017-05-15] MEDS: HYDROcodone/APAP 5-325MG 1 EACH TAB PO SCH ×2 (14:06→21:39)
--- NOTE | 2017-05-15 17:06 | P.CONS ---
History of Present Illness - Reason for Consult Consult date: 05/15/17 Lower back pain - History of Present Illness This is a 66-year-old female who underwent spinal fusion surgery in August 2016 comes in to the hospital with progressive worsening of lower back pain and generalized weakness for the last 4-6 weeks patient has been progressively getting worse and scan of the hospital. Patient underwent MRI there is some concern for discitis around L1 area. Patient is admitted to spinal surgery department At this time patient states that she denies having any headache change in vision nausea vomiting chest pain difficulty breathing urinary urgency or frequency diarrhea or constipation Patient's only complaints are some discomfort in her back and intermittent episodes of chills Patient denies having any further hospitalizations after her procedure or any recent infections or any use of antibiotics Patient was given a dose of vancomycin prior to blood culture being obtained Review of Systems All systems: negative (Noted in HPI) Past Medical History Past Medical History: Hypertension, Musculoskeletal Disorder (History of rectal lumbar fusion. She had remote history of fusion at her thoracic spine to L2 and more recent surgery approximately 9 months ago at her lumbar spine up to L2. There is hardware from L2 to L5), Osteoarthritis (OA), Sleep Apnea/CPAP/ BIPAP Additional Past Medical History / Comment(s): sciatica down right leg, past hx. sleep apnea, scoliosis History of Any Multi-Drug Resistant Organisms: None Reported Past Surgical History: Appendectomy, Back Surgery, Section, Cholecystectomy, Hysterectomy, Orthopedic Surgery, Tonsillectomy Additional Past Surgical History / Comment(s): surg. for sleep apnea, carpal tunnel elliott., multi level thoracic spinal fusion for scoliosis Past Anesthesia/Blood Transfusion Reactions: No Reported Reaction Additional Past Anesthesia/Blood Transfusion Reaction / Comm: can't have spinals Past Psychological History: No Psychological Hx Reported Smoking Status: Never smoker Past Alcohol Use History: None Reported Past Drug Use History: None Reported - Past Family History Mother Family Medical History: Cancer Brother(s) Family Medical History: No Reported History Father Family Medical History: Diabetes Mellitus Daughter(s) Family Medical History: Cancer Sister(s) Family Medical History: No Reported History Medications and Allergies Home Medications Medication Instructions Recorded Confirmed Type Vit C/E/Zn/Coppr/Lutein/Zeaxan 1 cap PO BID 08/31/16 05/13/17 History [Preservision Areds 2 Softgel] Red Yeast Rice 600 mg PO DAILY 12/07/16 08/17/17 History Atenolol [Tenormin] 50 mg PO BID 05/13/17 05/13/17 History Celecoxib [CeleBREX] 200 mg PO DAILY 05/13/17 05/13/17 History Cholecalciferol [Vitamin D3] 5,000 unit PO DAILY 05/13/17 05/13/17 History Cyanocobalamin (Vitamin B-12) 2,500 mcg PO DAILY 05/13/17 05/13/17 History [Vitamin B12] Cyclobenzaprine [Flexeril] 10 mg PO Q8H 05/13/17 05/13/17 History Gabapentin [Neurontin] 300 mg PO Q8H 05/13/17 05/13/17 History HYDROcodone/APAP 5-325MG [[place] 1 tab PO Q8H 05/13/17 05/13/17 History 5-325] Allergies Allergy/AdvReac Type Severity Reaction Status Date / Time ciprofloxacin [From Cipro] Allergy Rash/Hives/ Verified 05/13/17 18:12 Dyspnea Penicillins Allergy Rash/Hives Verified 05/13/17 18:12 acetaminophen [From Tylenol] AdvReac doesn't Verified 05/13/17 15:01 provide any effect @all codeine AdvReac Hallucinati Verified 05/13/17 18:12 ons meperidine [From Demerol] AdvReac doesn't Verified 05/13/17 15:01 provide any effect @all Physical Exam Vitals: Vital Signs Temp Pulse Resp BP Pulse Ox 05/15/17 15:20 71 16 05/15/17 15:00 98.3 F 93 18 147/72 96 05/15/17 07:30 71 16 05/15/17 07:00 97.6 F 80 16 120/59 97 05/15/17 00:00 71 16 05/14/17 21:20 97.3 F L 90 16 144/72 98 Intake and Output 05/15/17 05/15/17 05/15/17 06:59 14:59 22:59 Intake Total 625 240 Output Total 800 1200 Balance -175 -960 Intake: Intake, IV Titration 225 Amount Sodium Chloride 0.9% 1, 100 000 ml @ 20 mls/hr IV . Q24H [facility] Rx#:[id number] Vancomycin 1,500 mg In 125 Sodium Chloride 0.9% 250 ml @ 125 mls/hr IVPB Q8H [facility] Rx#:[id number] Oral 400 240 Output: Urine 800 1200 Other: Voiding Method Bedpan Bedpan Bedpan # Voids 3 1 Physical exam Gen. appearance oriented 3 in no distress Neck is supple no JVD Lungs good air entry clear to auscultation no rhonchi or wheezing Heart S1-S2 heard regular rate and rhythm no murmurs appreciated Abdomen is soft nontender no organomegaly bowel sounds are intact Neurologically cranial nerves II-12 grossly intact no focal motor or sensory deficits noted Skin no abnormalities appreciated Lower back previous surgical scar noted no significant focal tenderness no signs of abscess. Results CBC & Chem 7: 05/15/17 05:03 05/15/17 05:03 Labs: Abnormal Lab Results - Last 24 Hours (Table) 05/15/17 05/15/17 Range/Units 05:03 05:03 WBC 11.2 H (3.8-10.6) k/uL Hgb 10.9 L (11.4-16.0) gm/dL Glucose 104 H (74-99) mg/dL Microbiology - Last 24 Hours (Table) 05/14/17 00:13 Urine Culture - Final Urine,Voided Assessment and Plan Plan: #1 acute discitis #2 osteoarthritis #3 chronic low back pain Plan We'll defer to ID regarding timing of antibiotics Thank you for the consultation vitals are stable no further recommendations will follow patient along with you intermittently pain control Blood cultures were sent.
[2017-05-15] MEDS ORDERED: POLYETHYLENE GLYCOL 3350 17 GM POWD.PACK PO SCH (21:00)
[2017-05-15] MEDS: SODIUM CHLORIDE 0.9% 1,000 ML IV SCH (21:38)
[2017-05-16] MEDS: HYDROmorphone 1 MG/ML 1 ML SYRINGE IVP PRN (02:26)
[2017-05-16] MEDS ORDERED: VANCOMYCIN TROUGH DUE 1 EACH MISC MISCELLANE ONE (04:00)
[2017-05-16] MEDS: CYCLOBENZAPRINE 10 MG TAB PO SCH ×3 (05:28→17:32)
[2017-05-16] MEDS: MELOXICAM 7.5 MG TAB PO SCH (07:28)
[2017-05-16] MEDS: HYDROcodone/APAP 5-325MG 1 EACH TAB PO SCH ×2 (07:30→14:46)
[2017-05-16] MEDS: ATENOLOL 50 MG TAB PO SCH ×2 (07:30→20:41)
[2017-05-16] MEDS: GABAPENTIN 300 MG CAP PO SCH ×2 (07:30→14:46)
[2017-05-16] MEDS: POLYETHYLENE GLYCOL 3350 17 GM POWD.PACK PO SCH (07:31)
[2017-05-16] MEDS ORDERED: predniSONE 20 MG TAB PO ONE (08:00)
[2017-05-16 08:07] LABS: Anion Gap 7 mmol/L; Blood Urea Nitrogen 14 mg/dL (7-17); Calcium 9.2 mg/dL (8.4-10.2); Carbon Dioxide 29 mmol/L (22-30); Chloride 101 mmol/L (98-107); Glucose 81 mg/dL (74-99); Non-African American GFR(MDRD) >60 (>60 ml/min/1.73 sqM); Potassium 4.1 mmol/L (3.5-5.1); Sodium 137 mmol/L (137-145)
--- NOTE | 2017-05-16 09:03 | CONS ---
DATE OF CONSULTATION: 05/15/2017 REASON FOR CONSULTATION: Discitis. HISTORY OF PRESENT ILLNESS: The patient is a 66-year-old female with past medical history significant for thoracolumbar spine fusion, the last one was done in August where the patient underwent lumbar decompression and fusion , the fusion extended up to L2. The patient seems to have been doing well. However, still having problem. The lower mid back area back in March of this year, there is no clear history of any injury or any fall. The pain described to be dull, aching pain which has slowly increased in intensity, almost 7 to 8 out of 10. The patient did have some radiation of the pain down to the legs area. The patient denies having any weakness in the legs. No ( ) problem. The patient denies having any fever or chills. The patient has been treated in the outpatient setting with pain medication and did not have significant improvement and presented to the [facility] ER on 05/13/17 with worsening low back pain. The patient did have MRI of the lumbosacral spine done which did show findings suggestive of discitis at L1, L2 with ( ) infection suspected and probable osteomyelitis involving L1 vertebral body. The right sided ( ) pedicular screw extended into the disc space and likely inferior end plate of L1. The patient was started on Vancomycin. No cultures were done. ID was consulted for further recommendations regarding antibiotic therapy. REVIEW OF SYSTEMS: Constitutional: Positive for weakness but no fever has been recorded since being in the hospital and no fever at home. The patient did have a normal white count on admission though her sed rate has been elevated. EYES: No complaint. HEENT: No complaint. Respiratory: No complaint. Cardiovascular: No complaint. : No complaint. Gastrointestinal: No complaint. Musculoskeletal: As per HPI. Integumentary: No complaint. Psychological: No complaint. Endocrine: No complaint. Neurological: No complaint. Past medical history significant for hypertension, ( ), sleep apnea, sciatica. Past surgical history: Appendectomy, thoracolumbar spine fusion, , cholecystectomy, hysterectomy, tonsillectomy. SOCIAL HISTORY: No history of smoking, drinking or drug use. FAMILY HISTORY: Mother with history of cancer. Father with history of diabetes mellitus. ALLERGIES: CIPROFLOXACIN, PENICILLIN, TYLENOL, CODEINE. Medications include the patient is currently on: 1. Vancomycin, pharmacy to dose. 2. Tenormin. 3. Vitamin D3. 4. Vitamin B12. 5. Flexeril. 6. Valium. 7. Neurontin. 8. Dilaudid. 9. Mobic. 10. Narcan. 11. Zofran. 12. Miralax. 13. Prednisone. On examination, blood pressure is 147/72 with a pulse of 93. Temperature 98.3. She is 96% on room air. General description is an elderly female lying in bed, in no distress. No tachypnea or accessory muscles of respiration use. HEENT: Examination shows no pallor and no scleral icterus. Oral mucosa membranes dry. NECK: Trachea is central. No thyromegaly. LUNGS: Unlabored breathing. Clear to auscultation anteriorly. No wheeze or crackles. HEART: S1, S2 regular rate and rhythm. ABDOMEN: Soft. No tenderness. No guarding and no rigidity. EXTREMITIES: No edema of the feet. Examination of the lumbosacral spine, incision is currently completely healed and intact. No swelling or redness was noticed. No significant tenderness. NEUROLOGICALLY: The patient is awake, alert and oriented times three. Mood and affect normal. LABS: Hemoglobin 11.5, white count 4.2, BUN 12, creatinine 0.60. Sed rate 83 and 71. CRP elevated at 3.1. Vanco level was 24.8. No cultures have been done. DIAGNOSTIC IMPRESSION AND PLAN: The patient admitted to the hospital with worsening mid back pain in a patient who did have history of a thoracolumbar spine fusion with pain that started back in March with no clear history of any trauma. Patient with no fever, night sweats. No swelling or redness at the thoracolumbar incision and no point tenderness with MRI suspicious for possible discitis as well as ( ) of the right sided ( ) screw that extended to the disc space and likely inferior end plate of L1 that will need further evaluation before committing ourselves to terminal system operator antibiotic therapy and at the same time if there is any infection, would like to know the organism we are dealing with so it can be dealt with more specifically than empirically. PLAN: 1. As the patient does not look toxic, not running any fever and no elevated white count, we will go ahead and discontinue the antibiotic. 2. We will obtain blood cultures times two ( ). 3. We will request CT guided aspirate of this area which should be sent for culture. 4. Depending upon her clinical response as well as results of culture, we will resume medication if needed. Plan of care discussed in detail with the nurse practitioner for the orthopedic team. SANYA
--- NOTE | 2017-05-16 09:20 | P.PN ---
Progress Note - Text Patient is seen and examined today at bedside. She still having significant pain at her back those spasms may have decreased somewhat she still unable to get out of bed and requiring use of a bedpan in bed. She's not been able to sit up yet. She says that she is not really having changes in her lower extremities in terms of her strength or sensation. She is having just too much pain at her back to try to sit up or mobilize. Her nausea is improved. She has been able to tolerate some diet. She is voiding freely and having bowel movements. Her back exams unchanged. There is no erythema there is no ulcerations or purulence At her lower extremity sheaths has sustained dorsal flexion plantarflexion and EHL intact thighs and calves have motor and sensory intact Assessment and plan Acute discitis L1 to L2 Severe back pain and inability to ambulate due to pain Neurologically intact lower extremities but with radiculopathy over L2 description History of prior spinal fusion L2 to L5 with retained hardware and some hardware at the L1-2 disc space History of prior fusion at the thoracic spine down to L2 The patient continues to have severe pain at her lower back which appears to be due to the acute discitis at L1-2. She has been on IV antibiotics over the past day without any obvious change thus far. She should continue with her IV antibiotics until we get a more definitive pathogen to treat. She is scheduled for a CT-guided disc aspiration with interventional radiology and I think this is appropriate to isolate the organism and this will certainly help lead antibiotic treatment if we can isolate an organism. We again discussed the possibility of need for removal of the hardware at L1-2. I do not plan this on an emergent basis as she is still neurologically intact but this is a possibility if she is not responding to the antibiotics.
[2017-05-16] MEDS ORDERED: IV VANCOMYCIN PER PHARMACY 1 EACH MISC MISCELLANE PRN (09:38)
[2017-05-16] MEDS: CHOLECALCIFEROL 1,000 UNIT TAB PO SCH ×2 (11:43→11:44)
[2017-05-16] MEDS: VANCOMYCIN 1,500 MG in SODIUM CHLORIDE 0.9% 250 ML IVPB SCH ×2 (11:43→20:41)
[2017-05-16] MEDS: VIT A,C & E-LUTEIN-MINERALS 1 EACH TAB PO SCH ×2 (11:43→17:32)
[2017-05-16] MEDS: CYANOCOBALAMIN 500 MCG TAB PO SCH (11:44)
--- NOTE | 2017-05-16 16:54 | P.PN ---
Subjective This is a 66-year-old female who underwent spinal fusion surgery in August 2016 comes in to the hospital with progressive worsening of lower back pain and generalized weakness for the last 4-6 weeks patient has been progressively getting worse and scan of the hospital. Patient underwent MRI there is some concern for discitis around L1 area. Patient is admitted to spinal surgery department At this time patient states that she denies having any headache change in vision nausea vomiting chest pain difficulty breathing urinary urgency or frequency diarrhea or constipation Patient's only complaints are some discomfort in her back and intermittent episodes of chills Patient denies having any further hospitalizations after her procedure or any recent infections or any use of antibiotics Patient was given a dose of vancomycin prior to blood culture being obtained 05/16/2017. No new overnight events. No fevers chills nausea vomiting diarrhea patient continues to have back pain. Physical exam Gen. appearance oriented 3 in no distress Neck is supple no JVD Lungs good air entry clear to auscultation no rhonchi or wheezing Heart S1-S2 heard regular rate and rhythm no murmurs appreciated Abdomen is soft nontender no organomegaly bowel sounds are intact Neurologically cranial nerves II-12 grossly intact no focal motor or sensory deficits noted Skin no abnormalities appreciated Plan: #1 acute discitis #2 osteoarthritis #3 chronic low back pain . We'll restart vancomycin We'll inform Dr Storey regards to the ID recommendations of possibility of a exploration. Objective - Vital Signs Vital signs: Vital Signs Temp 97.4 F L 05/16/17 15:00 Pulse 79 05/16/17 15:00 Resp 18 05/16/17 15:00 BP 165/74 05/16/17 15:00 Pulse Ox 97 05/16/17 15:00 Intake & Output 05/15/17 05/16/17 05/16/17 18:59 06:59 18:59 Intake Total 240 400 60 Output Total 1200 300 Balance -960 400 -240 Intake: Oral 240 400 60 Output: Urine 1200 300 Other: Voiding Method Bedpan Bedpan Bedpan # Voids 1 2 - Labs CBC & Chem 7: 05/15/17 05:03 05/16/17 07:10 Labs: Microbiology - Last 24 Hours (Table) 05/15/17 14:11 Blood Culture - Preliminary Blood No Growth after 24 hours 05/15/17 13:52 Blood Culture - Preliminary Blood No Growth after 24 hours
[2017-05-16] MEDS: SODIUM CHLORIDE 0.9% 1,000 ML IV SCH (20:41)
[2017-05-16] MEDS ORDERED: DIAZEPAM 5 MG TAB PO PRN (21:00)
[2017-05-17] MEDS: HYDROcodone/APAP 5-325MG 1 EACH TAB PO SCH ×4 (00:22→23:14)
[2017-05-17] MEDS: GABAPENTIN 300 MG CAP PO SCH ×4 (00:22→23:14)
[2017-05-17] MEDS: CYCLOBENZAPRINE 10 MG TAB PO SCH ×3 (03:01→18:19)
[2017-05-17] MEDS: HYDROmorphone 1 MG/ML 1 ML SYRINGE IV PRN (03:48)
[2017-05-17] MEDS: VANCOMYCIN 1,500 MG in SODIUM CHLORIDE 0.9% 250 ML IVPB SCH ×2 (04:27→20:24)
[2017-05-17 08:03] LABS: Anion Gap 10 mmol/L; Blood Urea Nitrogen 16 mg/dL (7-17); Calcium 9.1 mg/dL (8.4-10.2); Carbon Dioxide 28 mmol/L (22-30); Chloride 102 mmol/L (98-107); Glucose 76 mg/dL (74-99); Non-African American GFR(MDRD) >60 (>60 ml/min/1.73 sqM); Potassium 4.2 mmol/L (3.5-5.1); Sodium 140 mmol/L (137-145)
[2017-05-17] MEDS: ATENOLOL 50 MG TAB PO SCH ×2 (08:19→20:23)
[2017-05-17] MEDS: MELOXICAM 7.5 MG TAB PO SCH (08:19)
[2017-05-17 08:46] LABS: INR 1.1 (<1.2); Prothrombin Time 11.2 sec (9.0-12.0)
[2017-05-17] MEDS: POLYETHYLENE GLYCOL 3350 17 GM POWD.PACK PO SCH (09:45)
--- NOTE | 2017-05-17 10:59 | PN ---
DATE OF SERVICE: 05/16/17 REASON FOR FOLLOW UP: Possible discitis. INTERVAL HISTORY: The patient is afebrile. She was complaining of some pain this morning especially with movement of her trunk and some radiation down to the leg area. No weakness in the leg. No ( ) drainage problem. No chest pain, shortness of breath, cough. On examination, blood pressure 150/77 with a pulse of 82. Temperature 97.2. She is 98% on room air. General description is a middle age female lying in the bed in no distress. Respiratory system unlabored breathing. Clear to auscultation anteriorly. Heart S1, S2 regular rate and rhythm. Abdomen soft. No tenderness. LABS: BUN 14, creatinine 0.58. Blood culture continues to be so far negative. DIAGNOSTIC IMPRESSION AND PLAN: The patient with pain to the mid back area with MRI suspicious for L1 and L2 discitis with hardware and recent fusion. We did stop our antibiotic yesterday and ordered a CT guided drainage of the area to increase the yield of the those cultures. Unfortunately she was started back on the Vancomycin by the hospitalist. She already received a dose. We will wait for those cultures to be done tomorrow to adjust antibiotic further. Continue supportive care. SANYA
[2017-05-17] MEDS: CYANOCOBALAMIN 500 MCG TAB PO SCH (11:59)
[2017-05-17] MEDS: VIT A,C & E-LUTEIN-MINERALS 1 EACH TAB PO SCH ×2 (12:00→18:19)
[2017-05-17] MEDS: HYDROmorphone 1 MG/ML 1 ML SYRINGE IVP PRN (13:27)
[2017-05-17] MEDS ORDERED: HYDROmorphone 1 MG/ML 1 ML SYRINGE IVP STA (14:36)
[2017-05-17] MEDS ORDERED: HYDROmorphone 1 MG/ML 1 ML SYRINGE IVP ONE (14:45)
--- NOTE | 2017-05-17 15:33 | P.PN ---
Progress Note - Text The patient is seen and examined at bedside today. She still complaining considerably pain in her low back when she tries to move. She was able get onto for her CT guided biopsy of L1 2 disc space. She says she was unable to lay on her stomach but was able to lay on her side and they were able to obtain specimen the results of which are still pending. She denies any fevers chills. She denies any changes in her lower extremity on exam she is alert and oriented 3. She is afebrile stable vital signs. Her lower extremity is have sustained dorsal flexion plantar flexion and EHL. Assessment and plan Discitis L1 to L2 Severe low back pain Inability to mobilize or ambulate due to low back pain History of prior surgery with retained hardware The patient underwent her CT biopsy of the L1-2 disc space which is appropriate will await the results and cultures for appropriate antibiotic regimen to be determined by infectious disease. She should continue with her medical management of her pain. I again discussed with her and her the possible need for removal of the hardware at the area if she is not responding to the antibiotics. We'll continue to follow her closely.
--- NOTE | 2017-05-17 16:38 | P.PN ---
Subjective progress note being dictated for Dr. Acosta Interval history:This is a 66-year-old female who underwent spinal fusion surgery in August 2016 comes in to the hospital with progressive worsening of lower back pain and generalized weakness for the last 4-6 weeks patient has been progressively getting worse and scan of the hospital. Patient underwent MRI there is some concern for discitis around L1 area. Patient is admitted to spinal surgery department At this time patient states that she denies having any headache change in vision nausea vomiting chest pain difficulty breathing urinary urgency or frequency diarrhea or constipation Patient's only complaints are some discomfort in her back and intermittent episodes of chills Patient denies having any further hospitalizations after her procedure or any recent infections or any use of antibiotics Patient was given a dose of vancomycin prior to blood culture being obtained 05/16/2017. No new overnight events. 05/17/2017 low back pain persists,. Underwent CT-guided drainage of affected area, culture sent. blood cultures remain negative. antibiotics as per infectious disease.afebrile. Objective - Vital Signs Vital signs: Vital Signs Temp 96.8 F L 05/17/17 15:00 Pulse 79 05/17/17 15:00 Resp 20 05/17/17 15:00 BP 131/69 05/17/17 15:00 Pulse Ox 94 L 05/17/17 15:00 Intake & Output 05/16/17 05/17/17 05/17/17 18:59 06:59 18:59 Intake Total 60 450 Output Total 300 Balance -240 450 Weight 91.626 kg Intake: Intake, IV Titration 450 Amount Sodium Chloride 0.9% 1, 450 000 ml @ 20 mls/hr IV . Q24H [facility] Rx#:[id number] Oral 60 Output: Urine 300 Other: Voiding Method Bedpan Bedpan Bedpan # Voids 3 1 - Exam Physical exam Gen. appearance oriented 3 in no acute distress Neck is supple no JVD Lungs good air entry clear to auscultation no rhonchi or wheezing, no crackles Heart S1-S2 heard regular rate and rhythm no murmurs appreciated Abdomen is soft nontender no organomegaly bowel sounds are intact Neurologically cranial nerves II-12 grossly intact no focal motor or sensory deficits noted Skin no abnormalities appreciated Microbiology 05/15/17 14:11 Blood Blood Culture - Preliminary No Growth after 48 hours 05/15/17 13:52 Blood Blood Culture - Preliminary No Growth after 48 hours 05/14/17 00:13 Urine,Voided Urine Culture - Final - Labs CBC & Chem 7: 05/15/17 05:03 05/17/17 07:12 Labs: Microbiology - Last 24 Hours (Table) 05/15/17 14:11 Blood Culture - Preliminary Blood No Growth after 48 hours 05/15/17 13:52 Blood Culture - Preliminary Blood No Growth after 48 hours Assessment and Plan Plan: #1 acute discitis #2 osteoarthritis #3 chronic low back pain plan: Continue on current medication regime ,monitoring and symptomatic treatment.pain management as per orthopedics. antibiotics as per infectious disease Await culture results. potential removal of hardware if no response to antibiotics as per orthopedics. prognosis guarded.maintain supportive care. Further recommendations to follow The impression and plan of care has been dictated as directedas a scribe. : I performed a H&P examination of this patient and discussed the same with the dictator. I agree with the dictator's note. Any additional findings/opinions/ etc. will be noted.
--- NOTE | 2017-05-17 16:41 | CT ---
EXAMINATION TYPE: CT guided aspiration DATE OF EXAM: 05/17/2017 COMPARISON: MR 05/14/2017 HISTORY: Abnormal MRI, infection Maximal barrier technique was utilized. The skin overlying a suitable path to the abnormal L1 vertebr al body inferior endplate was localized with CT. The overlying skin was prepped and draped and lidoca ine used for local anesthesia. A skin juan ramon was made with a scalpel. An 18-gauge needle was advanced u sing CT guidance, coaxial placement of a 22-gauge needle was performed and small amount of sanguinous aspirate was obtained and submitted in culture. No immediate complication. Patient remained in stabl e condition. No significant bleeding. IMPRESSION: Status post CT-guided aspiration biopsy for culture at the inferior endplate of L1. This procedure performed of the undersigned.
[2017-05-17] MEDS: SODIUM CHLORIDE 0.9% 1,000 ML IV SCH (20:18)
[2017-05-18] MEDS: CYCLOBENZAPRINE 10 MG TAB PO SCH ×3 (03:45→17:48)
[2017-05-18] MEDS: HYDROmorphone 1 MG/ML 1 ML SYRINGE IV PRN (04:19)
[2017-05-18] MEDS ORDERED: VANCOMYCIN TROUGH DUE 1 EACH MISC MISCELLANE ONE (08:00)
[2017-05-18] MEDS: MELOXICAM 7.5 MG TAB PO SCH (08:12)
[2017-05-18] MEDS: ATENOLOL 50 MG TAB PO SCH ×2 (08:15→21:15)
[2017-05-18] MEDS: HYDROcodone/APAP 5-325MG 1 EACH TAB PO SCH ×2 (08:15→17:45)
[2017-05-18] MEDS: GABAPENTIN 300 MG CAP PO SCH ×3 (08:15→23:28)
[2017-05-18] MEDS: POLYETHYLENE GLYCOL 3350 17 GM POWD.PACK PO SCH (08:18)
[2017-05-18 08:33] LABS: Anion Gap 9 mmol/L; Blood Urea Nitrogen 13 mg/dL (7-17); Calcium 9.1 mg/dL (8.4-10.2); Carbon Dioxide 27 mmol/L (22-30); Chloride 101 mmol/L (98-107); Glucose 81 mg/dL (74-99); Non-African American GFR(MDRD) >60 (>60 ml/min/1.73 sqM); Potassium 4.3 mmol/L (3.5-5.1); Sodium 137 mmol/L (137-145)
[2017-05-18] MEDS: VANCOMYCIN 1,500 MG in SODIUM CHLORIDE 0.9% 250 ML IVPB SCH ×2 (10:21→21:15)
--- NOTE | 2017-05-18 12:37 | P.PN ---
Progress Note - Text The patient is seen and examined again today at bedside. She is not really feeling any significant changes. Her legs are doing well but she has pain at her back when she tries to mobilize. Her results of the CT-guided biopsy per pulmonary Gram stain did not show any organisms but do show some white blood cells. The growths are pending. At her exam she has sustained motion at her bilateral lower extremity 5 out of 5 strength the dorsal flexion plantar flexion and EHL. Calves are soft nontender. Her back is clear. Assessment and plan L1-2 discitis History of prior fusion L2 to L5 with retained hardware and hardware involving the L1-2 disc space History of prior fusion from the thoracic spine down to L2 Low back pain with some radiculopathy over L2 distribution The patient has not been having any significant benefit thus far with the antibiotic management. I would like to see how she does with therapy to try to help her mobilize in addition to her pain control. Her biopsy results are pending from CT guided biopsy and she will continue with management per medicine and infectious disease. We again discussed possibly removal of hardware. We could consider this as early as if necessary.
[2017-05-18] MEDS: CHOLECALCIFEROL 1,000 UNIT TAB PO SCH (13:23)
[2017-05-18] MEDS: VIT A,C & E-LUTEIN-MINERALS 1 EACH TAB PO SCH ×2 (13:24→17:48)
[2017-05-18] MEDS: CYANOCOBALAMIN 500 MCG TAB PO SCH (13:24)
--- NOTE | 2017-05-18 18:24 | PN ---
DATE OF SERVICE: 05/17/2017 REASON FOR FOLLOWUP: Possible discitis. INTERVAL HISTORY: The patient is afebrile. She was seen on rounds early this afternoon when she was waiting for the CT-guided aspirate of the affected area. She has pain on movement of the trunk, has some radiation to the left mid ( ) area. The patient denies significant chest pain, shortness of breath or cough. On examination, blood pressure is 131/69 with a pulse of 69, temperature 96.8. She is 94% on room air. General description is an elderly female lying in bed in no distress. RESPIRATORY SYSTEM: Unlabored breathing. Clear to auscultation anteriorly. HEART: S1, S2. Regular rate and rhythm. ABDOMEN: Soft. No tenderness. LABS: Blood culture has been negative so far. DIAGNOSTIC IMPRESSION AND PLAN: Patient with possible L1-2 discitis, status post CT-guided aspirate; waiting for the culture to finalize. Will keep the patient on IV vancomycin at this point. Family was present at the bedside. Their questions and concerns were answered. SANYA
[2017-05-18] MEDS: SODIUM CHLORIDE 0.9% 1,000 ML IV SCH (21:15)
--- NOTE | 2017-05-18 22:50 | P.PN ---
Subjective progress note being dictated for Dr. Acosta Interval history:This is a 66-year-old female who underwent spinal fusion surgery in August 2016 comes in to the hospital with progressive worsening of lower back pain and generalized weakness for the last 4-6 weeks patient has been progressively getting worse and scan of the hospital. Patient underwent MRI there is some concern for discitis around L1 area. Patient is admitted to spinal surgery department At this time patient states that she denies having any headache change in vision nausea vomiting chest pain difficulty breathing urinary urgency or frequency diarrhea or constipation Patient's only complaints are some discomfort in her back and intermittent episodes of chills Patient denies having any further hospitalizations after her procedure or any recent infections or any use of antibiotics Patient was given a dose of vancomycin prior to blood culture being obtained 05/16/2017. No new overnight events. 05/17/2017 low back pain persists,. Underwent CT-guided drainage of affected area, culture sent. blood cultures remain negative. antibiotics as per infectious disease.afebrile. 05/18/17 Low back pain with sitting up, with movement, mildly improved on scheduled norco.Aspiration cx results pending. Maintained on Vancomycin as per ID. Afebrile. Objective - Vital Signs Vital signs: Vital Signs Temp 97.8 F 05/18/17 15:00 Pulse 82 05/18/17 16:00 Resp 16 05/18/17 16:00 BP 112/66 05/18/17 21:13 Pulse Ox 97 05/18/17 15:00 Intake & Output 05/18/17 05/18/17 05/19/17 06:59 18:59 06:59 Intake Total 520 Output Total 300 Balance 520 -300 Intake: IV 220 Sodium Chloride 0.9% 1, 220 000 ml @ 20 mls/hr IV . Q24H COUNTS INCLUDE 234 BEDS AT THE [facility] Rx#:[id number] Oral 300 Output: Urine 300 Other: Voiding Method Bedpan Bedpan # Voids 3 3 - Exam Physical exam Gen. appearance oriented 3 in no acute distress Neck is supple no JVD, oral mucosa moist Lungs good air entry clear to auscultation no rhonchi or wheezing, no crackles Heart S1-S2 heard regular rate and rhythm no murmurs appreciated Abdomen is soft nontender no organomegaly bowel sounds are intact Neurologically cranial nerves II-12 grossly intact no focal motor or sensory deficits noted Skin no abnormalities appreciated Microbiology 05/15/17 14:11 Blood Blood Culture - Preliminary No Growth after 72 hours 05/15/17 13:52 Blood Blood Culture - Preliminary No Growth after 72 hours 05/17/17 14:50 Other - Other Gram Stain - Preliminary 05/17/17 14:50 Other - Other Wound Culture - Preliminary 05/17/17 14:50 Other - Other Anaerobic Culture - Preliminary 05/14/17 00:13 Urine,Voided Urine Culture - Final - Labs CBC & Chem 7: 05/15/17 05:03 05/18/17 07:56 Labs: Microbiology - Last 24 Hours (Table) 05/15/17 14:11 Blood Culture - Preliminary Blood No Growth after 72 hours 05/15/17 13:52 Blood Culture - Preliminary Blood No Growth after 72 hours 05/17/17 14:50 Gram Stain - Preliminary Other - Other Wound Culture - Preliminary 05/17/17 14:50 Anaerobic Culture - Preliminary Other - Other Assessment and Plan Plan: #1 acute discitis #2 osteoarthritis #3 chronic low back pain plan: Continue on current medication regime , Vancomycin,monitoring and symptomatic treatment.pain management as per orthopedics.Culture results pending. antibiotics as per infectious disease. Potential removal of hardware pending response to antibiotics being discussed. prognosis guarded.maintain supportive care. Further recommendations to follow. The impression and plan of care has been dictated as directedas a scribe. : I performed a H&P examination of this patient and discussed the same with the dictator. I agree with the dictator's note. Any additional findings/opinions/ etc. will be noted.
[2017-05-19] MEDS: HYDROcodone/APAP 5-325MG 1 EACH TAB PO SCH ×3 (00:41→17:08)
[2017-05-19] MEDS: CYCLOBENZAPRINE 10 MG TAB PO SCH ×3 (02:15→17:40)
[2017-05-19 08:30] LABS: Anion Gap 11 mmol/L; Blood Urea Nitrogen 14 mg/dL (7-17); Calcium 9.5 mg/dL (8.4-10.2); Carbon Dioxide 26 mmol/L (22-30); Chloride 102 mmol/L (98-107); Glucose 89 mg/dL (74-99); Non-African American GFR(MDRD) >60 (>60 ml/min/1.73 sqM); Potassium 4.4 mmol/L (3.5-5.1); Sodium 139 mmol/L (137-145)
[2017-05-19 08:58] LABS: Basophils % (A) 0 %; CH 27.5; CHCM 32.6; Eosinophils # (A) 0.2 k/uL (0-0.7); Eosinophils % (A) 3 %; HDW 2.47; HGB 12.8 gm/dL (11.4-16.0); Luc # (Auto) 0.11; Luc % (Auto) 2; Lymphocytes # (A) 2.1 k/uL (1.0-4.8); Lymphocytes % (A) 29 %; MCH 27.7 pg (25.0-35.0); MCHC 32.8 g/dL (31.0-37.0); MCV 84.3 fL (80.0-100.0); Mean Platelet Volume 6.1; Monocytes # (A) 0.5 k/uL (0-1.0); Monocytes % (A) 7 %; Neutrophils # (A) 4.4 k/uL (1.3-7.7); Neutrophils % (A) 60 %; RBC 4.62 m/uL (3.80-5.40); RDW 14.7 % (11.5-15.5); WBC 7.3 k/uL (3.8-10.6); WBC (Perox) 7.27
[2017-05-19] MEDS: MELOXICAM 7.5 MG TAB PO SCH (11:03)
[2017-05-19] MEDS: GABAPENTIN 300 MG CAP PO SCH ×2 (11:03→17:08)
[2017-05-19] MEDS: POLYETHYLENE GLYCOL 3350 17 GM POWD.PACK PO SCH (11:04)
[2017-05-19] MEDS: CHOLECALCIFEROL 1,000 UNIT TAB PO SCH (11:04)
[2017-05-19] MEDS: VANCOMYCIN 1,500 MG in SODIUM CHLORIDE 0.9% 250 ML IVPB SCH ×2 (11:09→20:26)
[2017-05-19] MEDS: ATENOLOL 50 MG TAB PO SCH ×2 (11:09→20:26)
[2017-05-19] MEDS: VIT A,C & E-LUTEIN-MINERALS 1 EACH TAB PO SCH ×2 (11:14→17:41)
[2017-05-19] MEDS: CYANOCOBALAMIN 500 MCG TAB PO SCH (11:14)
[2017-05-19] MEDS ORDERED: IV FLUID CONTINUATION 1,000 ML IV ONE (15:19)
--- NOTE | 2017-05-19 15:49 | P.PN ---
Progress Note - Text The patient is again seen and examined at bedside. She is essentially not having any significant changes on her exam or her overall clinical picture. Her wound cultures from the CT biopsy are still negative to date. I discussed the case with Dr. Dudley as well as with Dr. Whitmore with infectious disease. We feel that there is discitis at L1-2 and that the hardware at the L1-2 disc from the L2 pedicle is bringing it more difficult to get clearance of the infection. The hardware may be perpetuating the infection and it would be reasonable to remove the hardware at the L1-2 disc space. She has hardware from L2 to L5 intact and I think we can remove the L2 pedicle screw which penetrates L1-2 disc space with a portion of the radha but leave the remainder of the hardware intact and is not seem to involve the disc space or the infectious area on the MRI. I discussed this with the patient at length yesterday and today. I discussed the risks, occasions associated with surgical intervention and the nature of surgery involved. I answered the patient's questions to best my ability and leg which she can understand and she is agreeable to proceed with surgical intervention and has signed informed consent. We will plan to pursue removal of hardware at L1-2 today.
[2017-05-19] MEDS ORDERED: LIDOCAINE 1% INJ 10MG/ML (20 ML MDV) ONE (16:12)
[2017-05-19] MEDS ORDERED: THROMBIN (BOVINE) 5,000 UNIT VIAL TOPICAL ONE (16:12)
[2017-05-19] MEDS ORDERED: SUCCINYLCHOLINE CHLORIDE 100 MG/5 ML SYR IV ONE (16:12)
[2017-05-19] MEDS ORDERED: GLYCOPYRROLATE 0.2 MG/ML 2 ML VIAL ONE (16:12)
[2017-05-19] MEDS ORDERED: BUPIVACAINE (PF) 0.25% 30 ML VIAL SQ ONE (16:12)
[2017-05-19] MEDS ORDERED: MIDAZOLAM 2 MG/2 ML VIAL ONE (16:12)
[2017-05-19] MEDS ORDERED: fentaNYL (PF) 50 MCG/ML 2 ML AMP ONE (16:12)
[2017-05-19] MEDS ORDERED: ROCURONIUM BROMIDE 10 MG/ML 10 ML VIAL IV ONE (16:12)
[2017-05-19] MEDS ORDERED: GELATIN SPONGE,ABSORB (LARGE) 1 EACH SPONGE TOPICAL ONE (16:12)
[2017-05-19] MEDS ORDERED: LIDOCAINE 0.5% (PF) 5 MG/ML (50 ML SDV) SQ ONE (16:12)
[2017-05-19] MEDS ORDERED: ePHEDrine SULFATE/0.9% NACL/PF 50 MG/5 ML SYRINGE IV ONE (16:12)
[2017-05-19] MEDS ORDERED: PROPOFOL 10 MG/ML 20 ML VIAL IV ONE (16:12)
[2017-05-19] MEDS ORDERED: NEOSTIGMINE 1 MG/ML 10 ML VIAL ONE (16:12)
[2017-05-19] MEDS ORDERED: PHENYLEPHRINE-0.9% NACL SYG 1 MG/10 ML SYRINGE ONE (16:12)
--- NOTE | 2017-05-19 16:13 | P.PN ---
Subjective progress note being dictated for Dr. Acosta Interval history:This is a 66-year-old female who underwent spinal fusion surgery in August 2016 comes in to the hospital with progressive worsening of lower back pain and generalized weakness for the last 4-6 weeks patient has been progressively getting worse and scan of the hospital. Patient underwent MRI there is some concern for discitis around L1 area. Patient is admitted to spinal surgery department At this time patient states that she denies having any headache change in vision nausea vomiting chest pain difficulty breathing urinary urgency or frequency diarrhea or constipation Patient's only complaints are some discomfort in her back and intermittent episodes of chills Patient denies having any further hospitalizations after her procedure or any recent infections or any use of antibiotics Patient was given a dose of vancomycin prior to blood culture being obtained 05/16/2017. No new overnight events. 05/17/2017 low back pain persists. Underwent CT-guided drainage of affected area, culture sent. blood cultures remain negative. antibiotics as per infectious disease.afebrile. 05/18/17 Low back pain with sitting up, with movement, mildly improved on scheduled norco.Aspiration cx results pending. Maintained on Vancomycin as per ID. Afebrile. 05/19/17 persistent pain, and wound cultures currently negative, afebrile. Scheduled for removal of hardware at L1-2 today with orthopedics. Denies chest pain, palpitations or increasing shortness of breath. Objective - Vital Signs Vital signs: Vital Signs Temp 97.8 F 05/19/17 07:00 Pulse 85 05/19/17 07:00 Resp 16 05/19/17 07:00 BP 104/60 05/19/17 07:00 Pulse Ox 99 05/19/17 07:00 Intake & Output 05/18/17 05/19/17 05/19/17 18:59 06:59 18:59 Intake Total 350 Output Total 300 Balance -300 350 Intake: IV 100 Sodium Chloride 0.9% 1, 100 000 ml @ 20 mls/hr IV . Q24H [facility] Rx#:[id number] Intake, IV Titration 250 Amount Vancomycin 1,500 mg In 250 Sodium Chloride 0.9% 250 ml @ 125 mls/hr IVPB Q12H [facility] Rx#:[id number] Output: Urine 300 Other: Voiding Method Bedpan Bedpan # Voids 3 2 # Bowel Movements 1 - Exam Gen. appearance oriented 3, in no acute distress Neck is supple no JVD, oral mucosa moist Lungs good air entry clear to auscultation, no rhonchi ,wheezing, no crackles Heart S1-S2 heard regular rate and rhythm no murmurs appreciated Abdomen is soft nontender no organomegaly bowel sounds present Neurologically cranial nerves II-12 grossly intact no focal motor or sensory deficits noted Skin no abnormalities appreciated Microbiology 05/15/17 14:11 Blood Blood Culture - Preliminary No Growth after 72 hours 05/15/17 13:52 Blood Blood Culture - Preliminary No Growth after 72 hours 05/17/17 14:50 Other - Other Gram Stain - Preliminary 05/17/17 14:50 Other - Other Wound Culture - Preliminary 05/17/17 14:50 Other - Other Anaerobic Culture - Preliminary 05/14/17 00:13 Urine,Voided Urine Culture - Final - Labs CBC & Chem 7: 05/19/17 07:40 05/19/17 07:40 Labs: Microbiology - Last 24 Hours (Table) 05/15/17 14:11 Blood Culture - Preliminary Blood No Growth after 72 hours 05/15/17 13:52 Blood Culture - Preliminary Blood No Growth after 72 hours Assessment and Plan Plan: #1 acute discitis L1-2. #2 osteoarthritis #3 chronic low back pain plan: Continue on current medication regime , Vancomycin,monitoring and symptomatic treatment.pain management as per orthopedics.scheduled for removal of hardware today . Continue following cultures closely. Antibiotics as per infectious disease. Further recommendations to follow. The impression and plan of care has been dictated as directedas a scribe. : I performed a H&P examination of this patient and discussed the same with the dictator. I agree with the dictator's note. Any additional findings/opinions/ etc. will be noted.
[2017-05-19] MEDS ORDERED: LACTATED RINGERS 1,000 ML IV ONE (17:00)
[2017-05-19] MEDS: HYDROmorphone 1 MG/ML 1 ML SYRINGE IVP ONE ×2 (18:05→18:12)
--- NOTE | 2017-05-19 18:19 | P.OP ---
Date of Procedure: 05/19/17 Preoperative Diagnosis: L1-2 discitis, Irritating hardware L1-2 History of prior fusion L2 to L5 Left lower extremity radiculopathy Back pain Postoperative Diagnosis: Same Procedure(s) Performed: Implants: Anesthesia: GETA Pathology: other (Deep culture from the L1-2 disc space sent to microbiology 2) Condition: stable Disposition: PACU Indications for Procedure: Operative Findings: Description of Procedure: BRIEF OPERATIVE NOTE Preoperative Diagnosis: L1-2 discitis, irritating hardware L1-2, history of prior fusion L2 to L5 with retained hardware, lower extremity radiculopathy, low back pain Postoperative Diagnosis: Same Procedure: Removal of hardware from L2 pedicle which penetrated to L1-2 disc Revision laminectomy L2-3 deep culture from the L1-2 disc space 2 Surgeon: Dr. López Pile Fabric Knitter:None Anesthesia: General anesthesia per Dr. Mayberry Estimated blood loss: approximately 20 mL Complications: None apparent Components implanted: none, but we did remove one Iqbal K2M pedicle screw from the right of L2 pedicle which penetrated the L1-2 disc space and a portion of the radha Disposition: To recovery room in good stable condition. OPERATIVE INDICATIONS The patient is well known to our service as she has undergone prior treatment and surgical intervention for her lumbar spine. She has long history of issues with her spine and underwent thoracolumbar fusion when she was a child down to L2. We had been seeing her last year in regards to her low back pain which was caused by degenerative scoliosis spinal stenosis and facet arthrosis. The patient had failed conservative management and was a candidate for surgical intervention and ultimately underwent surgical intervention from L2 to L5 with decompression and fusion in August 2016. She had actually done quite well postoperatively she was making good progress and was doing well over the several months after her surgery. However over the past 6 weeks or so she has been they'll following worsening symptoms at her back. We try to treat her conservatively has we were seeing her regularly in the office. She was not having significant benefit and eventually prior presented to the emergency room where she underwent laboratory workup and MRI evaluation which showed a discitis at L1-2. She was treated medically with antibiotics and with pain management. She is not having any were any good response and she underwent CT- guided biopsy and aspiration at the disc of L12 which has not shown any growth thus far. In discussion with the radiologist as well as with the infectious disease doctor we felt that was likely that she had continued infection at the L1-2 disc and discitis which was perpetuating her symptoms. We felt that the hardware was irritating the disc and contribute into the continued infection and the lack of response. We discussed the possibility of removal of the hardware particularly at L2 pedicle screw which penetrated the L1-2 disc space. We discussed the risk, patient's alternatives and benefits of surgery including but not limited to, risk of bleeding risk of infection, risk of need for further surgery, risk of decreased, loss of motion, loss of function, nerve damage, paralysis, heart attack, blindness and . we felt that she would be best served with removal of the hardware at the L1-2 disc. OPERATIVE SUMMARY After discussing all the risks, patient alternatives and benefits at length, the patient elected to proceed with surgical intervention, signed informed consent, and presented for their procedure. The patient was seen and examined in the preoperative holding area and the surgical site was marked. The patient was given antibiotics and brought to the operating room. The patient was sedated and intubated by anesthesia in standard fashion. The patient was positioned on to the operating room table in a prone position on the appropriate frame which was well-padded and well molded. We were careful to pad any bony prominences and pressure points. We were careful to maintain the patient's cervical spine and good neutral alignment and position throughout. The patient was prepped and draped in a normal standard fashion. An appropriate timeout and keystone protocol performed. We were able to proceed with the surgery. the patient has numerous incisions at her back and we utilized the prior incisions at the midline. The local wound area was infiltrated with local anesthetic. An incision was made at the midline longitudinally over the appropriate levelsAt L2 . Dissection was taken down subcutaneously to the level of the fascia which was split midline. Dissection was taken over the lamina. the patient has severe bony and soft tissue changes with scarring from her prior surgeries but I was able to easily identify the hardware at the right with the radha and the pedicle screw at L2 on the right. With the appropriate level positively confirmed, I was able to cut the radha on the right with metal cutting bur. With the loose I was able to then remove that piece of the radha and then remove the screw at the L2 pedicle. The screw was found to be somewhat loose and was easily removed. It was evaluated and found to be in total. There is no evidence of purulence or fracture or fatigue of the screw itself. I was able to palpate into the disc space through the pedicle. There is no evidence of any pus or purulence. I took deep cultures through the pedicle hole and into the disc 2 to be sent micro-biology. I performed some excisional debridement of the granular tissue around the pedicle screw site which appeared to be somewhat denuded. The wound was then copiously irrigated and suctioned dry with 2 L of irrigation. Given the patient's radicular symptoms I explored the interspace at L2-3, and then I performed a revision laminectomy with a combination of curettes and a high-speed bur and Kerrison rongeurs. there appeared to be significant scar tissue which was removed however there was no further signs of significant stenosis at the area. The hardware that was remained and visualized appeared to be intact and stable. There is no evidence of dural tear or leak. Good hemostasis maintained. The wound was copiously irrigated and suctioned dry. We were able to proceed with closure. The fascia was closed for a watertight closureWith PDS suture . The subcuticular tissue was closed with absorbable suture. The wound was cleaned and dried and dressed with the appropriate dressing. The drapes were broken down. The patient was gently rolled back onto their hospital bed being careful to maintain their cervical spine and good neutral alignment and position. They were woken up by anesthesia, extubated, and brought to the recovery room in good stable condition. The patient will be admitted to the hospital for observation and for appropriate postoperative care, medical management and monitoring. We will continue to follow them closely about the postoperative course.
[2017-05-19] MEDS ORDERED: HYDROmorphone 1 MG/ML 1 ML SYRINGE IVP ONE ×2 (18:29→18:34)
--- NOTE | 2017-05-19 19:02 | XR ---
EXAMINATION TYPE: XR lumbar spine 2 or 3V DATE OF EXAM: 05/19/2017 COMPARISON: 05/13/2017 HISTORY: Hardware removal TECHNIQUE: Single crosstable lateral and frontal images were performed of the lumbar spine. FINDINGS: Pedicular screws and fixation rods traverse the L2-5 vertebral levels. There is been surgic al removal of the right L2 pedicular screw fixation radha. There is a levoscoliotic curvature of the edward mbar spine. Cholecystectomy clips reside within the right upper quadrant. Multilevel facet arthropath y, endplate sclerosis and marginal osteophytes are seen. IMPRESSION: Interval removal of the right L2 pedicle screw and portions of a fixation radha.
[2017-05-19] MEDS: HYDROcodone/APAP 5-325MG 1 EACH TAB PO PRN ×2 (19:25→22:25)
[2017-05-19] MEDS: ONDANSETRON 4 MG/2 ML VIAL IVP PRN (19:38)
--- NOTE | 2017-05-19 21:10 | PN ---
DATE OF SERVICE: 05/18/17 REASON FOR FOLLOW UP: Possible discitis. INTERVAL HISTORY: The patient is afebrile. She did have some pain, especially on movement of the trunk area. No significant ( ) to the leg or any bowel or bladder problem. The patient denies significant chest pain, shortness of breath, cough, no abdominal pain. No diarrhea. On examination, blood pressure 141/69 with a pulse of 82. Temperature 97.9. She is 97% on room air. General description is an elderly female lying in the bed in no distress. Respiratory system unlabored breathing. Clear to auscultation anteriorly. Heart S1, S2 regular rate and rhythm. Abdomen soft. No tenderness. LABS: BUN 13 and creatinine 0.54. Hemoglobin 14.5. DIAGNOSTIC IMPRESSION AND PLAN: The patient with possible L1, L2 discitis. Her care was discussed in detail with Dr. López on the phone. The patient will go for removal of the hardware in the infected area in order to completely clear up this infection. At the same time, cultures will be obtained. The patient will continue Vancomycin at this point watching kidney function closely. Continue supportive care. SANYA
[2017-05-20] MEDS: ONDANSETRON 4 MG/2 ML VIAL IVP PRN ×2 (00:58→21:33)
[2017-05-20] MEDS: CYCLOBENZAPRINE 10 MG TAB PO SCH ×3 (00:58→17:07)
[2017-05-20] MEDS: GABAPENTIN 300 MG CAP PO SCH ×3 (00:58→17:07)
[2017-05-20] MEDS: SODIUM CHLORIDE 0.9% 1,000 ML IV SCH (01:03)
[2017-05-20] MEDS: HYDROcodone/APAP 5-325MG 1 EACH TAB PO PRN ×5 (02:51→22:48)
[2017-05-20 08:04] LABS: Basophils % (A) 0 %; CH 28.1; CHCM 32.8; Eosinophils # (A) 0.2 k/uL (0-0.7); Eosinophils % (A) 2 %; HCT 37.4 % (34.0-46.0); HDW 2.38; Luc % (Auto) 1; Lymphocytes # (A) 1.6 k/uL (1.0-4.8); Lymphocytes % (A) 17 %; MCH 27.5 pg (25.0-35.0); MCV 85.9 fL (80.0-100.0); Mean Platelet Volume 6.6; Monocytes # (A) 0.6 k/uL (0-1.0); Monocytes % (A) 6 %; Neutrophils # (A) 6.6 k/uL (1.3-7.7); Neutrophils % (A) 73 %; RBC 4.35 m/uL (3.80-5.40); RDW 15.5 % (11.5-15.5); WBC (Perox) 8.96
--- NOTE | 2017-05-20 08:27 | PN ---
DATE OF SERVICE: 05/19/2017 REASON FOR FOLLOW UP: Possible L1-2 diskitis. INTERVAL HISTORY: The patient is afebrile. She is breathing comfortably. Pain to the spine area is about the same and no worsening. Scheduled for removal of the hardware and culture today per Dr. López. On examination: Blood pressure 104/58 with pulse of 85. Temperature 97.8. She is 99% on room air. General description is an elderly female lying in bed in no distress. RESPIRATORY: Unlabored breathing. Clear to auscultation anteriorly. HEART: S1, S2 regular rate and rhythm. ABDOMEN: Soft, no tenderness. LABS: Hemoglobin 12.8, white count 7.3 with BUN 14, creatinine 0.6. Culture done CT guided so far negative. Blood culture negative. DIAGNOSTIC IMPRESSION AND PLAN: Patient with possibly L1-2 diskitis with hardware with removal of the hardware today and deep cultures. Keep the patient on vancomycin. Patient likely will need PICC line which will be placed tomorrow for outpatient IV antibiotic therapy. Plan at this point for vancomycin and that may need to be adjusted further based on the culture report. Continue supportive care. MTDD
[2017-05-20 08:32] LABS: Chloride 104 mmol/L (98-107); Glucose 87 mg/dL (74-99)
[2017-05-20 08:33] LABS: Anion Gap 7 mmol/L; Blood Urea Nitrogen 15 mg/dL (7-17); Carbon Dioxide 27 mmol/L (22-30); Non-African American GFR(MDRD) >60 (>60 ml/min/1.73 sqM); Potassium 4.3 mmol/L (3.5-5.1); Sodium 138 mmol/L (137-145)
[2017-05-20] MEDS: VANCOMYCIN 1,500 MG in SODIUM CHLORIDE 0.9% 250 ML IVPB SCH ×2 (08:35→19:57)
[2017-05-20] MEDS: ATENOLOL 50 MG TAB PO SCH ×2 (08:35→21:34)
[2017-05-20] MEDS: MELOXICAM 7.5 MG TAB PO SCH (08:35)
[2017-05-20] MEDS: POLYETHYLENE GLYCOL 3350 17 GM POWD.PACK PO SCH (08:36)
--- NOTE | 2017-05-20 08:56 | P.PN ---
Progress Note - Text Postoperative day #1 Patient is seen and examined today at bedside. The patient has some pain around the surgical site as expected, but she says that she is doing well. Pain is being controlled with medication. She was having some mild nausea but has been able to have some breakfast this morning. She is not having any changes in her lower extremities with any significant pain thus far today. She says she slept well last night Physical Exam Afebrile with stable vital signs Abdomen is soft nontender. Chest has good excursion deep and space expiration The incision site is clean dry and intact. No erythema there is no purulence. Extremities have not had neurologic change from prior to surgery. She has sustained dorsal flexion plantar flexion and EHL at her bilateral lower extremities Calves and thighs were soft nontender without evidence of DVT. Assessment/Plan Postoperative day #1 status post removal of deep hardware at L1 to L2 with revision decompression L2-3. Patient is progressing as expected from the surgery. She has some pain around the site but seems to be controlled with medications. She is not having any fevers today and her cultures are still pending. The Gram stain initially do not show any significant findings. There is no organisms seen with you lymphocytes. We will continue to increase the patient's mobilization with therapy, starting today. We will discontinue her Bradshaw this morning She'll continue her IV medication per infectious disease and her medical management It is likely that she will need longterm or rehab post discharge. We're still waiting to see if she will require a PICC line placement. This would be determined through infectious disease. I think that a number of the pains that she is having into her left leg are likely due to irritation of her psoas muscle from inflammation from the infection at L1-2. I do not see evidence of abscess on the MRI. Hopefully this will resolve as she continues to improve. We will continue pain control with oral or IV medications. We'll continue to follow patient closely.
[2017-05-20] MEDS: VIT A,C & E-LUTEIN-MINERALS 1 EACH TAB PO SCH ×2 (12:26→17:07)
[2017-05-20] MEDS: CHOLECALCIFEROL 1,000 UNIT TAB PO SCH (12:26)
[2017-05-20] MEDS: CYANOCOBALAMIN 500 MCG TAB PO SCH (12:26)
--- NOTE | 2017-05-20 16:45 | P.PN ---
Subjective progress note being dictated for Dr. Acosta Interval history:This is a 66-year-old female who underwent spinal fusion surgery in August 2016 comes in to the hospital with progressive worsening of lower back pain and generalized weakness for the last 4-6 weeks patient has been progressively getting worse and scan of the hospital. Patient underwent MRI there is some concern for discitis around L1 area. Patient is admitted to spinal surgery department At this time patient states that she denies having any headache change in vision nausea vomiting chest pain difficulty breathing urinary urgency or frequency diarrhea or constipation Patient's only complaints are some discomfort in her back and intermittent episodes of chills Patient denies having any further hospitalizations after her procedure or any recent infections or any use of antibiotics Patient was given a dose of vancomycin prior to blood culture being obtained 05/16/2017. No new overnight events. 05/17/2017 low back pain persists. Underwent CT-guided drainage of affected area, culture sent. blood cultures remain negative. antibiotics as per infectious disease.afebrile. 05/18/17 Low back pain with sitting up, with movement, mildly improved on scheduled norco.Aspiration cx results pending. Maintained on Vancomycin as per ID. Afebrile. 05/19/17 persistent pain, and wound cultures currently negative, afebrile. Scheduled for removal of hardware at L1-2 today with orthopedics. Denies chest pain, palpitations or increasing shortness of breath. 05/20/2017. Status post hardware removal at L1-2 yesterday. States significant improvement in pain. Tolerated sitting up, stood up with physical therapy at bedside today, minimal dizziness. Denies chest pain, palpitations or increasing shortness of breath. Afebrile, cultures pending. Antibiotics as per infectious disease. Objective - Vital Signs Vital signs: Vital Signs Temp 98.4 F 05/20/17 15:00 Pulse 74 05/20/17 15:00 Resp 16 05/20/17 15:00 BP 112/58 05/20/17 15:00 Pulse Ox 98 05/20/17 15:00 Intake & Output 05/19/17 05/20/17 05/20/17 18:59 06:59 18:59 Intake Total 1650 Output Total 140 120 Balance 1510 -120 Weight 91.626 kg Intake: IV 1650 Output: Urine 120 120 Estimated Blood Loss 20 Other: Voiding Method Bedpan Indwelling Catheter Indwelling Catheter # Voids 1 1 # Bowel Movements 1 - Exam Gen. appearance oriented 3, in no acute distress Neck is supple no JVD, oral mucosa moist Lungs good air entry clear to auscultation, no rhonchi ,wheezing, no crackles Heart S1-S2 heard regular rate and rhythm no murmurs appreciated Abdomen is soft nontender no organomegaly bowel sounds present Neurologically cranial nerves II-12 grossly intact no focal motor or sensory deficits noted Skin no abnormalities appreciated Microbiology 05/15/17 14:11 Blood Blood Culture - Preliminary No Growth after 120 hours 05/15/17 13:52 Blood Blood Culture - Preliminary No Growth after 120 hours 05/19/17 17:23 Back Gram Stain - Preliminary 05/19/17 17:23 Back Wound Culture - Preliminary 05/19/17 17:23 Back Gram Stain - Preliminary 05/19/17 17:23 Back Wound Culture - Preliminary 05/17/17 14:50 Other - Other Anaerobic Culture - Preliminary 05/19/17 17:23 Back Anaerobic Culture - Preliminary 05/19/17 17:23 Back Fungal Culture - Preliminary 05/19/17 17:23 Back Anaerobic Culture - Preliminary 05/19/17 17:23 Back Fungal Culture - Preliminary 05/17/17 14:50 Other - Other Gram Stain - Final 05/17/17 14:50 Other - Other Wound Culture - Final 05/14/17 00:13 Urine,Voided Urine Culture - Final - Labs CBC & Chem 7: 05/20/17 07:24 05/20/17 07:24 Labs: Microbiology - Last 24 Hours (Table) 05/15/17 14:11 Blood Culture - Preliminary Blood No Growth after 120 hours 05/15/17 13:52 Blood Culture - Preliminary Blood No Growth after 120 hours 05/19/17 17:23 Gram Stain - Preliminary Back Wound Culture - Preliminary 05/19/17 17:23 Gram Stain - Preliminary Back Wound Culture - Preliminary 05/17/17 14:50 Anaerobic Culture - Preliminary Other - Other 05/19/17 17:23 Anaerobic Culture - Preliminary Back 05/19/17 17:23 Fungal Culture - Preliminary Back 05/19/17 17:23 Anaerobic Culture - Preliminary Back 05/19/17 17:23 Fungal Culture - Preliminary Back 05/17/17 14:50 Gram Stain - Final Other - Other Wound Culture - Final Assessment and Plan Plan: #1 acute discitis L1-2, status post hardware removal #2 osteoarthritis #3 chronic low back pain plan: Continue on current medication regime , Vancomycin,monitoring and symptomatic treatment.Pain management as per orthopedics.Follow cultures closely. Antibiotics as per infectious disease. Potential subacute rehab at discharge. Further recommendations to follow. The impression and plan of care has been dictated as directedas a scribe. : I performed a H&P examination of this patient and discussed the same with the dictator. I agree with the dictator's note. Any additional findings/opinions/ etc. will be noted.
[2017-05-20] MEDS ORDERED: CALCIUM CARBONATE 500 MG CHEWABLE PO PRN (19:50)
[2017-05-20] MEDS ORDERED: VANCOMYCIN TROUGH DUE 1 EACH MISC MISCELLANE ONE (20:00)
[2017-05-21] MEDS: GABAPENTIN 300 MG CAP PO SCH ×3 (01:35→16:23)
[2017-05-21] MEDS: CYCLOBENZAPRINE 10 MG TAB PO SCH ×3 (01:35→17:58)
[2017-05-21] MEDS: HYDROcodone/APAP 5-325MG 1 EACH TAB PO PRN ×2 (07:35→16:23)
[2017-05-21 08:06] LABS: Basophils % (A) 0 %; CH 28.1; CHCM 32.5; Eosinophils # (A) 0.2 k/uL (0-0.7); Eosinophils % (A) 3 %; HDW 2.31; HGB 11.2 gm/dL (11.4-16.0); Luc # (Auto) 0.11; Luc % (Auto) 1; Lymphocytes # (A) 1.8 k/uL (1.0-4.8); Lymphocytes % (A) 22 %; MCHC 31.2 g/dL (31.0-37.0); MCV 86.6 fL (80.0-100.0); Mean Platelet Volume 6.7; Monocytes # (A) 0.6 k/uL (0-1.0); Monocytes % (A) 7 %; Neutrophils # (A) 5.4 k/uL (1.3-7.7); Neutrophils % (A) 66 %; RBC 4.16 m/uL (3.80-5.40); RDW 15.5 % (11.5-15.5); WBC 8.1 k/uL (3.8-10.6); WBC (Perox) 8.43
[2017-05-21 08:16] LABS: Anion Gap 8 mmol/L; Blood Urea Nitrogen 9 mg/dL (7-17); Carbon Dioxide 28 mmol/L (22-30); Chloride 101 mmol/L (98-107); Glucose 89 mg/dL (74-99); Non-African American GFR(MDRD) >60 (>60 ml/min/1.73 sqM); Potassium 4.1 mmol/L (3.5-5.1); Sodium 137 mmol/L (137-145)
--- NOTE | 2017-05-21 08:20 | P.PN ---
Progress Note - Text Postoperative day #2 Patient is seen and examined today at bedside. The patient has some pain around the surgical site as expected, but the pain has changed for her to some degree. She has been able to get up to the bedside commode but still has great difficulty with any sort of significant ambulation. She feels her radicular- type symptoms or symptoms down toward her anterior thighs and groin have diminished to some degree. Pain is being controlled with medication. Physical Exam Afebrile with stable vital signs Abdomen is soft nontender. Chest has good excursion deep and space expiration The incision site is clean dry and intact. No erythema there is no purulence. No active drainage Extremities have not had neurologic change from prior to surgery. She has sustained dorsal flexion and plantar flexion and EHL bilateral lower extremities with 5 out of 5 strength Calves and thighs were soft nontender without evidence of DVT. Assessment/Plan Postoperative day #2 status post removal of hardware from L1 to L2 for her L1-2 discitis Patient is progressing as expected from the surgery though it is somewhat slow and she continues to have significant pain with any sort of mobilization,. She is planned to undergo PICC line placement today. He microbiology is still not showing any obvious growth. She'll continue her antibiotic regimen per infectious disease. Case management is working with her in regards to possible placement once the PICC line is established. We will continue to increase the patient's mobilization with therapy. We will continue pain control with oral or IV medications. We'll continue to follow patient closely.
[2017-05-21] MEDS: POLYETHYLENE GLYCOL 3350 17 GM POWD.PACK PO SCH (08:34)
[2017-05-21] MEDS: ATENOLOL 50 MG TAB PO SCH (08:35)
[2017-05-21] MEDS: MELOXICAM 7.5 MG TAB PO SCH (08:36)
[2017-05-21] MEDS: VANCOMYCIN 1,500 MG in SODIUM CHLORIDE 0.9% 250 ML IVPB SCH (08:37)
[2017-05-21 08:53] LABS: C Reactive Protein 86.6 mg/L (<10.0)
[2017-05-21 10:37] LABS: Erythrocyte Sedimentation Rate 48 mm/hr (0-20)
[2017-05-21] MEDS ORDERED: LIDOCAINE 2% INJ 20 MG/ML SQ ONE (11:37)
--- NOTE | 2017-05-21 12:06 | IR ---
PICC LINE PLACEMENT: HISTORY: Infection requiring long-term antibiotic therapy PROCEDURE: Ultrasound and fluoroscopic guidance of PICC line placement. COMPLICATIONS: None ANESTHESIA: 1. 1% Lidocaine locally. FINDINGS/TECHNIQUE: The procedure was explained to the patient. The risks, complications, benefits and alternatives were discussed and any questions were answered. Informed consent was obtained. The patient was placed supine on the fluoroscopic table and prepped and draped in the usual sterile fash ion. Utilizing a 21 gauge needle and sonographic and fluoroscopic guidance, access in the left basi lic vein was achieved and there is placement of a 0.018 guidewire. The vein is patent. A 4-F sheath was placed over the guidewire. The guidewire and dilator were removed and a 4-F. PICC line was plac ed through the sheath with the tip at the level of the SVC. The sheath was removed, the catheter was flushed and sutured into position. The patient was stable throughout the procedure and remained sta ble upon discharge from the Department of Radiology. The vein puncture was patent under ultrasound. A wheatley scale image was obtained to document patency of the vein punctured. All elements of the maximal barrier technique were utilized. FLUOROSCOPY TIME: 20 minutes of fluoroscopy time. One image provided. IMPRESSION: Successful PICC line placement under ultrasound and fluoroscopic guidance.
[2017-05-21] MEDS: CYANOCOBALAMIN 500 MCG TAB PO SCH (13:11)
[2017-05-21] MEDS: VIT A,C & E-LUTEIN-MINERALS 1 EACH TAB PO SCH ×2 (13:11→17:59)
[2017-05-21] MEDS: CHOLECALCIFEROL 1,000 UNIT TAB PO SCH (13:11)
--- NOTE | 2017-05-21 14:13 | PN ---
DATE OF SERVICE: 05/20/2017 Reason for followup is lumbar discitis. INTERVAL HISTORY: The patient is afebrile. The patient is status post surgery yesterday with removal of the hardware. The patient had been ( ) pain in her left thigh area has improved compared to yesterday. She is able to sit up with less pain. Denies significant chest pain, shortness of breath or cough. On examination, blood pressure is 140/60 with a pulse of 74, temperature 98.8. She is 98% on room air. General description is an elderly female lying in bed in no distress. RESPIRATORY SYSTEM: Unlabored breathing. Clear to auscultation anteriorly. HEART: S1 and S2, regular rate and rhythm. ABDOMEN: Soft, no tenderness. LABS: Vanco was therapeutic at 15.3 with a BUN of 15 and creatinine 0.65. Cultures so far negative. DIAGNOSTIC IMPRESSION AND PLAN: Patient with possible L1-L2 discitis with hardware that has been removed. Patient did have culture done, however, has been almost 72 hours after being on antibiotic with those being negative, could have been antibiotic ( ). Will go ahead and get a PICC line for continuation of IV vancomycin for at least 6 weeks in outpatient setting. Continue support care. SHAKAD
[2017-05-21 14:38] VITALS: RESP 18
[2017-05-21 14:52] VITALS: BMI 30.7
--- NOTE | 2017-05-21 17:04 | P.DS ---
<Virginie Rascon - Last Filed: 05/21/17 16:46> Providers Date of admission: 05/15/17 07:57 Expected date of discharge: 05/21/17 Attending physician: Eric López Consults: 05/14/17 21:03 Consult Physician Routine Consulting Provider: Mary Jo Whitmore Consult Reason/Comments: osteomylitis/ discitis L1 to L2 with history of lumbar fusion and thoracic Do you want consulting provider notified?: Yes 05/15/17 09:52 Consult Physician Routine Consulting Provider: Katiuska Lewis Consult Reason/Comments: Medical management Do you want consulting provider notified?: Yes Primary care physician: Flex Harper - Discharge Diagnosis(es) (1) Discitis, unspecified, lumbar region Status: Acute (2) Intractable pain Status: Acute (3) History of fusion of spine for scoliosis Status: Acute Hospital Course: This is a 66 year old female admitted with intractable back pain. She has history of Lumbar puncture in the past. She has had progressively worsening pain over the past several weeks. MRI revealed discitis and osteomyelitis of L1-L2. She was taken to surgery for removal of hardware L1 and L2. The patient tolerated the procedure well. She is doing well post operatively. She is able to edge in bed but still has difficulty with ambulation. It is recommended that she have home IV antibiotics. She got a PICC line and will be discharged to inpatient rehab. Her antibiotics will be managed by infectious disease. She is discharged to inpatient rehab in stable condition. Patient Condition at Discharge: Good Plan - Discharge Summary New Discharge Prescriptions: New Methocarbamol [Robaxin] 1,000 mg PO TID PRN #4 tab PRN Reason: pain Calcium Carbonate [Tums] 1,000 mg PO QID PRN PRN Reason: Heartburn Polyethylene Glycol 3350 [Miralax] 17 gm PO DAILY pack Continue Vit C/E/Zn/Coppr/Lutein/Zeaxan [Preservision Areds 2 Softgel] 1 cap PO BID Gabapentin [Neurontin] 300 mg PO Q8H Cyclobenzaprine [Flexeril] 10 mg PO Q8H Cyanocobalamin (Vitamin B-12) [Vitamin B12] 2,500 mcg PO DAILY Cholecalciferol [Vitamin D3] 5,000 unit PO DAILY Atenolol [Tenormin] 50 mg PO BID HYDROcodone/APAP 5-325MG [[place] 5-325] 1 tab PO Q8H #20 Discontinued Red Yeast Rice 600 mg PO DAILY Celecoxib [CeleBREX] 200 mg PO DAILY Discharge Medication List Vit C/E/Zn/Coppr/Lutein/Zeaxan [Preservision Areds 2 Softgel] 1 cap PO BID 08/31 [History] Atenolol [Tenormin] 50 mg PO BID 05/13/17 [History] Cholecalciferol [Vitamin D3] 5,000 unit PO DAILY 05/13/17 [History] Cyanocobalamin (Vitamin B-12) [Vitamin B12] 2,500 mcg PO DAILY 05/13/17 [History ] Cyclobenzaprine [Flexeril] 10 mg PO Q8H 05/13/17 [History] Gabapentin [Neurontin] 300 mg PO Q8H 05/13/17 [History] Methocarbamol [Robaxin] 1,000 mg PO TID PRN #4 tab 05/13/17 [Rx] Calcium Carbonate [Tums] 1,000 mg PO QID PRN 05/21/17 [Rx] HYDROcodone/APAP 5-325MG [[place] 5-325] 1 tab PO Q8H #20 05/21/17 [Rx] Polyethylene Glycol 3350 [Miralax] 17 gm PO DAILY pack 05/21/17 [Rx] Follow up Appointment(s)/Referral(s): Eric López DO [Doctor of Osteopathic Medicine] - 10 Days Flex Harper MD [Primary Care Provider] - 1 Week (after dc from [facility]) Mary Jo Whitmore MD [STAFF PHYSICIAN] - 1 Week Activity/Diet/Wound Care/Special Instructions: [facility] vancomycin IV 6 weeks-pharmacy to dose daily Physical therapy for mobilization, ambulation, transfers and endurance keep incision sit on aback clean and dry may shower with waterproof dressing intact over incision site ambulate to tolerance CBC, BMP in 3 days Discharge Disposition: TRANSFER TO SNF/F <Eric López - Last Filed: 05/22/17 08:08> Hospital Course: I saw the patient on the day of discharge. I discussed case with any Rascon and I agree with the dictation above. She was able to get her PICC line placement and her plan for IV antibiotics per infectious disease. We'll follow her up on an outpatient basis and monitor her healing.
[2017-05-21 18:35] VITALS: BP 118/52; PULSE 80; TEMP 98.1
--- NOTE | 2017-05-22 09:26 | PN ---
DATE OF SERVICE: 05/21/17 REASON FOR FOLLOW UP: Possible L1, L2 discitis. INTERVAL HISTORY: The patient is afebrile. He is feeling better. Breathing comfortably. Pain to the lumbar spine area is currently controlled. The patient denies significant chest pain, shortness of breath, cough. No abdominal pain. No diarrhea. On examination, blood pressure 114/54 with a pulse of 78. Temperature 98.7. She is 95% on room air. General description is an elderly female lying in bed in no distress. Respiratory system unlabored breathing. Clear to auscultation. Heart S1, S2 regular rate and rhythm. Abdomen soft. No tenderness. LABS: BUN 9, creatinine 0.62. Hemoglobin 11, White count 8.1, cultures so far negative. DIAGNOSTIC IMPRESSION AND PLAN: The patient admitted to the hospital with pain in the lumbar spine area with question of discitis on the MRI. Culture has been done. ( ) has been done , the patient has been on vancomycin for more than 72 hours to 96 hours and could remain negative. With view of slight improvement on the Vancomycin, recommend to keep the patient on Vancomycin, pharmacy to dose, target of 15. ( ) of 10. Though the CRP is elevated. We will continue to monitor those parameters in the outpatient setting with close outpatient follow-up. Plan of care discussed with the nurse practitioner for the primary team. SANYA
--- NOTE | 2017-05-22 18:11 | P.PN ---
Subjective progress note being dictated for Dr. Becerra Interval history:This is a 66-year-old female who underwent spinal fusion surgery in August 2016 comes in to the hospital with progressive worsening of lower back pain and generalized weakness for the last 4-6 weeks patient has been progressively getting worse and scan of the hospital. Patient underwent MRI there is some concern for discitis around L1 area. Patient is admitted to spinal surgery department At this time patient states that she denies having any headache change in vision nausea vomiting chest pain difficulty breathing urinary urgency or frequency diarrhea or constipation Patient's only complaints are some discomfort in her back and intermittent episodes of chills Patient denies having any further hospitalizations after her procedure or any recent infections or any use of antibiotics Patient was given a dose of vancomycin prior to blood culture being obtained 05/16/2017. No new overnight events. 05/17/2017 low back pain persists. Underwent CT-guided drainage of affected area, culture sent. blood cultures remain negative. antibiotics as per infectious disease.afebrile. 05/18/17 Low back pain with sitting up, with movement, mildly improved on scheduled norco.Aspiration cx results pending. Maintained on Vancomycin as per ID. Afebrile. 05/19/17 persistent pain, and wound cultures currently negative, afebrile. Scheduled for removal of hardware at L1-2 today with orthopedics. Denies chest pain, palpitations or increasing shortness of breath. 05/20/2017. Status post hardware removal at L1-2 yesterday. States significant improvement in pain. Tolerated sitting up, stood up with physical therapy at bedside today, minimal dizziness. Denies chest pain, palpitations or increasing shortness of breath. Afebrile, cultures pending. Antibiotics as per infectious disease. 05/21/2017. Maintained on vancomycin IV. Feeling much better today. Pain significantly improved. Currently cultures negative .Afebrile. CRP elevated. PICC line placed. Denies chest pain, palpitations or increasing shortness of breath. Objective - Vital Signs Vital signs: Vital Signs Temp 98.7 F 05/21/17 14:37 Pulse 78 05/21/17 16:00 Resp 18 05/21/17 16:00 BP 114/54 05/21/17 14:37 Pulse Ox 95 05/21/17 14:37 Intake & Output 05/20/17 05/21/17 05/21/17 18:59 06:59 18:59 Output Total 120 Balance -120 Weight 91.626 kg 91.626 kg Output: Urine 120 Other: Voiding Method Indwelling Catheter Bedside Commode Bedside Commode # Voids 1 - Exam Gen. appearance oriented 3, in no acute distress Neck is supple no JVD, oral mucosa moist Lungs good air entry clear to auscultation, no rhonchi ,wheezing, no crackles Heart S1-S2 heard regular rate and rhythm no murmurs appreciated Abdomen is soft nontender no organomegaly bowel sounds present Neurologically cranial nerves II-12 grossly intact no focal motor or sensory deficits noted Skin no abnormalities appreciated Microbiology 05/19/17 17:23 Back Anaerobic Culture - Preliminary 05/17/17 14:50 Other - Other Anaerobic Culture - Final 05/19/17 17:23 Back Gram Stain - Final 05/19/17 17:23 Back Wound Culture - Final 05/19/17 17:23 Back Gram Stain - Final 05/19/17 17:23 Back Wound Culture - Final 05/15/17 14:11 Blood Blood Culture - Final No Growth after 144 hours 05/15/17 13:52 Blood Blood Culture - Final No Growth after 144 hours 05/19/17 17:23 Back Fungal Culture - Preliminary 05/19/17 17:23 Back Anaerobic Culture - Preliminary 05/19/17 17:23 Back Fungal Culture - Preliminary 05/17/17 14:50 Other - Other Gram Stain - Final 05/17/17 14:50 Other - Other Wound Culture - Final 05/14/17 00:13 Urine,Voided Urine Culture - Final - Labs CBC & Chem 7: 05/21/17 07:35 05/21/17 07:35 Labs: Abnormal Lab Results - Last 24 Hours (Table) 05/21/17 05/21/17 Range/Units 07:35 07:35 Hgb 11.2 L (11.4-16.0) gm/dL ESR 48 H (0-20) mm/hr C-Reactive Protein 86.6 H (<10.0) mg/L Microbiology - Last 24 Hours (Table) 05/15/17 13:52 Blood Culture - Final Blood No Growth after 144 hours 05/19/17 17:23 Gram Stain - Preliminary Back Wound Culture - Preliminary 05/19/17 17:23 Gram Stain - Preliminary Back Wound Culture - Preliminary 05/15/17 14:11 Blood Culture - Preliminary Blood No Growth after 120 hours Assessment and Plan Plan: #1 acute discitis L1-2, status post hardware removal #2 osteoarthritis #3 chronic low back pain plan: Continue on current medication regime , Vancomycin,monitoring and symptomatic treatment.discharge planning in progress for subacute rehab. PICC line placed. Antibiotics of vancomycin with pharmacy to dose 6 weeks as per infectious disease .Pain management as per orthopedics. Further recommendations to follow. The impression and plan of care has been dictated as directedas florian wolff. : I performed a H&P examination of this patient and discussed the same with the dictator. I agree with the dictator's note. Any additional findings/opinions/ etc. will be noted.
== END 2017-05-21 19:10 | DRG 517 ==
LOC: EC 14:21 → 5MS5E 17:44 → OBSVTOIN 05-15 07:57
PROVIDERS: ADMIT Orthopaedic Surgery Orthopaedic Surgery of the Spine; ATTEND Orthopaedic Surgery Orthopaedic Surgery of the Spine
PROC: 0S903ZX Drainage of Lumbar Vertebral Joint, Percutaneous Approach, Diagnostic (ICD-10-PCS; 2017-05-17)
PROC: 0QB00ZZ Excision of Lumbar Vertebra, Open Approach (ICD-10-PCS; 2017-05-19)
PROC: 0SP004Z Removal of Internal Fixation Device from Lumbar Vertebral Joint, Open Approach (ICD-10-PCS; principal; 2017-05-19 07:30)
PROC: B548ZZA Ultrasonography of Superior Vena Cava, Guidance (ICD-10-PCS; 2017-05-21)
PROC: B518ZZA Fluoroscopy of Superior Vena Cava, Guidance (ICD-10-PCS; 2017-05-21)
PROC: 02HV33Z Insertion of Infusion Device into Superior Vena Cava, Percutaneous Approach (ICD-10-PCS; 2017-05-21 11:20)
DX: M46.26 Osteomyelitis of vertebra, lumbar region (principal); M41.9 Scoliosis, unspecified; I10 Essential (primary) hypertension; K59.00 Constipation, unspecified; M46.46 Discitis, unspecified, lumbar region; Z98.1 Arthrodesis status; M19.91 Primary osteoarthritis, unspecified site; G47.30 Sleep apnea, unspecified; Z90.49 Acquired absence of other specified parts of digestive tract; Z90.710 Acquired absence of both cervix and uterus; Z79.1 Long term (current) use of non-steroidal anti-inflammatories (NSAID); Z79.891 Long term (current) use of opiate analgesic; Z79.899 Other long term (current) drug therapy; G89.29 Other chronic pain; F40.240 Claustrophobia; Z88.6 Allergy status to analgesic agent; Z88.1 Allergy status to other antibiotic agents; Z88.5 Allergy status to narcotic agent; Z88.0 Allergy status to penicillin; Z88.8 Allergy status to other drugs, medicaments and biological substances
CPT/HCPCS: 36415; 36569; 72100; 72158; 76937; 77001; 77012; 80048; 80053; 80202; 85025; 85027; 85610; 85652; 86140; 87040; 87070; 87075; 87086; 87102; 87205; 96374; 96375; 96376; 99284

== ENCOUNTER → 2018-05-17 | Outpatient (CLI) | payer MEDICARE ==
--- NOTE | 2018-05-19 11:59 | MM ---
Reason for exam: screening (asymptomatic). Last mammogram was performed 1 year and 5 months ago. History: Patient is postmenopausal. Family history of breast cancer in mother at age 57. Physical Findings: A clinical breast exam by your physician is recommended on an annual basis and results should be correlated with mammographic findings. MG 3D Screening Mammo W/Cad Bilateral CC, MLO, and XCCL view(s) were taken. Prior study comparison: December 21, 2016, bilateral MG 3d screening mammo w/cad. December 20, 2015, bilateral MG screening mammo w CAD. The breast tissue is heterogeneously dense. This may lower the sensitivity of mammography. Focal asymmetry right retroareolar region. No significant changes when compared with prior studies. ASSESSMENT: Incomplete: need additional imaging evaluation, BI-RAD 0 RECOMMENDATION: Special view mammogram of the right breast. If lesion persists on supplemental views, image directed ultrasound is recommended. [facility] will attempt to contact patient to return for supplemental views and ultrasound if indicated.
== END | disposition home or self-care (01) ==
LOC: RADMAMWWP 09:28
PROVIDERS: ATTEND Internal Medicine
DX: Z12.31 Encounter for screening mammogram for malignant neoplasm of breast (principal)
CPT/HCPCS: 77063; 77067

== ENCOUNTER → 2018-06-08 | Outpatient (CLI) | payer MEDICARE ==
--- NOTE | 2018-06-09 08:51 | MM ---
Reason for exam: additional evaluation requested from abnormal screening. Last mammogram was performed 1 month ago. History: Patient is postmenopausal. Family history of breast cancer in mother at age 57. Physical Findings: Nurse did not find any significant physical abnormalities on exam. MG 3D Work Up W/Cad RT Spot compression CC, spot compression MLO, and ML view(s) were taken of the right breast. Prior study comparison: May 17, 2018, bilateral MG 3d screening mammo w/cad. December 21, 2016, bilateral MG 3d screening mammo w/cad. The breast tissue is heterogeneously dense. This may lower the sensitivity of mammography. The questioned 3 o'clock anterior focal asymmetry is unchanged on additional views. Ultrasound recommended. These results were verbally communicated with the patient and result sheet given to the patient on 06/08/18. ASSESSMENT: Incomplete: need additional imaging evaluation, BI-RAD 0 RECOMMENDATION: Ultrasound of the right breast.
--- NOTE | 2018-06-09 08:55 | USB ---
Reason for exam: additional evaluation requested from abnormal screening. History: Patient is postmenopausal. Family history of breast cancer in mother at age 57. US Breast Workup Limited RT Right limited breast ultrasound including focal area of concern, retroareolar and axilla demonstrates no cystic or solid lesion seen. Scanned 12-5 o'clock with particular attention to the 3 o'clock location. No solid or cystic lesions. 6 month follow up mammogram recommended. These results were verbally communicated with the patient and result sheet given to the patient on 06/08/18. ASSESSMENT: Probably benign, BI-RAD 3 RECOMMENDATION: Follow-up diagnostic mammogram of the right breast in 6 months.
== END | disposition home or self-care (01) ==
LOC: RADMAMWWP 13:44
PROVIDERS: ATTEND Internal Medicine
DX: R92.8 Other abnormal and inconclusive findings on diagnostic imaging of breast (principal)
CPT/HCPCS: 77065; 76642; G0279; 77061

== ENCOUNTER → 2019-01-09 | Outpatient (CLI) | payer MEDICARE ==
--- NOTE | 2019-01-10 07:39 | MM ---
Reason for exam: follow-up at short interval from prior study. Last mammogram was performed 7 months ago. History: Patient is postmenopausal. Family history of breast cancer in mother at age 57. Physical Findings: Nurse did not find any significant physical abnormalities on exam. MG 3D Diag Mammo W/Cad RT CC, MLO, and XCCL view(s) were taken of the right breast. Prior study comparison: June 08, 2018, right breast MG 3d work up w/cad RT. May 17, 2018, bilateral MG 3d screening mammo w/cad. The breast tissue is heterogeneously dense. This may lower the sensitivity of mammography. The medial asymmetry is unchanged and disperses on 3D and XCCL view. These results were verbally communicated with the patient and result sheet given to the patient on 01/09/19. ASSESSMENT: Negative, BI-RAD 1 RECOMMENDATION: Return to routine screening mammogram schedule for both breasts. Back on schedule for April 2019.
== END | disposition home or self-care (01) ==
LOC: RADMAMWWP 15:11
PROVIDERS: ATTEND Internal Medicine
DX: R92.8 Other abnormal and inconclusive findings on diagnostic imaging of breast (principal)
CPT/HCPCS: 77065; G0279; 77061

== ENCOUNTER → 2021-09-29 | Outpatient (CLI) | payer MEDICARE ==
--- NOTE | 2021-09-29 12:43 | MM ---
Reason for exam: screening (asymptomatic). Last mammogram was performed 2 years and 9 months ago. History: Patient is postmenopausal. Family history of breast cancer in mother at age 57 and breast cancer in aunt. Physical Findings: A clinical breast exam by your physician is recommended on an annual basis and results should be correlated with mammographic findings. MG Screening Mammo w CAD Bilateral CC and MLO view(s) were taken. XCCL view(s) were taken of the right breast. Prior study comparison: January 09, 2019, right breast MG 3d diag mammo w/cad RT. June 08, 2018, right breast MG 3d work up w/cad RT. The breast tissue is heterogeneously dense. This may lower the sensitivity of mammography. There are benign appearing round, vascular calcifications bilaterally. There is no discrete abnormality. ASSESSMENT: Benign, BI-RAD 2 RECOMMENDATION: Routine screening mammogram of both breasts in 1 year.
== END | disposition home or self-care (01) ==
LOC: RADMAMWWP 10:49
PROVIDERS: ATTEND Family Medicine
DX: Z00.00 Encounter for general adult medical examination without abnormal findings (principal); Z12.31 Encounter for screening mammogram for malignant neoplasm of breast
CPT/HCPCS: 77067

== ENCOUNTER → 2022-10-13 | Outpatient (CLI) | payer MEDICARE ==
--- NOTE | 2022-10-14 12:16 | MM ---
Reason for Exam: Screening (asymptomatic). Last screening mammogram was performed 12 month(s) ago. Patient History: Menarche at age 12. First Full-Term at age 27. Hysterectomy at age 43. Postmenopausal. Patient has history of breast feeding. Maternal aunt had breast cancer. Mother had breast cancer, age 57. Risk Values: Hailee 5 year model risk: 3.8%. NCI Lifetime model risk: 10.2%. Prior Study Comparison: 06/08/2018 Right Diagnostic Mammogram, [facility]. 01/09/2019 Right Diagnostic Mammogram, [facility]. 09/29/2021 Bilateral Screening Mammogram, [facility]. Tissue Density: The breast tissue is heterogeneously dense. This may lower the sensitivity of mammography. Findings: Analyzed By CAD. There is no suspicious group of microcalcifications or new suspicious mass in either breast. Overall Assessment: Negative, BI-RAD 1 Management: Screening Mammogram of both breasts in 1 year. A clinical breast exam by your physician is recommended on an annual basis and results should be correlated with mammographic findings. [facility] will attempt to contact patient to return for supplemental views and ultrasound if indicated. Electronically signed and approved by: Bob Núñez DO
== END | disposition home or self-care (01) ==
LOC: RADMAMWWP 09:06
PROVIDERS: ATTEND Family Medicine
DX: Z12.31 Encounter for screening mammogram for malignant neoplasm of breast (principal); Z80.3 Family history of malignant neoplasm of breast; Z78.0 Asymptomatic menopausal state
CPT/HCPCS: 77067

== ENCOUNTER → 2024-10-20 | Outpatient (CLI) | payer MEDICARE ==
--- NOTE | 2024-10-20 12:51 | MM ---
Reason for Exam: Screening (asymptomatic). Last mammogram was performed 2 year(s) and 0 month(s) ago. Patient History: Menarche at age 12. First Full-Term at age 27. Hysterectomy at age 43. Postmenopausal. Patient has history of breast feeding. Maternal aunt had breast cancer. Mother had breast cancer, age 57. Risk Values: Hailee 5 year model risk: 3.8%. NCI Lifetime model risk: 9.2%. Prior Study Comparison: 01/09/2019 Right Diagnostic Mammogram, [facility]. 09/29/2021 Bilateral Screening Mammogram, [facility]. 10/13/2022 Bilateral MG screening mammo w CAD, [facility]. Tissue Density: The breasts are heterogeneously dense, which may obscure small masses. Findings: Analyzed By CAD. Nodular asymmetric density medial anterior left cc view appears more defined. This may represent superimposition shadow but further evaluation is recommended. Otherwise, no significant change. Overall Assessment: Incomplete: need additional imaging evaluation, BI-RAD 0 Management: Special View Mammogram of the left breast. See note below in regards to patient's increased 5 year Hailee score. [facility] will attempt to contact patient to return for supplemental views and ultrasound if indicated. Note on Hailee scores and lifetime risk: 1. A Hailee score greater than 3% is considered moderate risk. If this is the case, consider specialist referral to assess eligibility for a risk reducing agent. 2. If overall lifetime risk for the development of breast cancer is 20% or higher, the patient may qualify for future screening with alternating mammogram and breast MRI. [facility], , 10/20/2024 12:47 PM. Electronically signed and approved by: Tiffanie Mccann M.D. Radiologist
== END | disposition home or self-care (01) ==
LOC: RADMAMWWP 11:11
PROVIDERS: ATTEND Student in an Organized Health Care Education/Training Program
DX: Z12.31 Encounter for screening mammogram for malignant neoplasm of breast (principal); R92.333 Mammographic heterogeneous density, bilateral breasts; Z78.0 Asymptomatic menopausal state; Z80.3 Family history of malignant neoplasm of breast
CPT/HCPCS: 77067

== ENCOUNTER → 2024-10-25 | Outpatient (CLI) | payer MEDICARE ==
--- NOTE | 2024-10-25 08:57 | MM ---
Reason for Exam: Additional evaluation requested from abnormal screening. Last screening mammogram was performed less than 1 month ago. Patient History: Menarche at age 12. First Full-Term at age 27. Hysterectomy at age 43. Postmenopausal. Patient has history of breast feeding. Maternal aunt had breast cancer. Mother had breast cancer, age 57. Risk Values: Hailee 5 year model risk: 3.8%. NCI Lifetime model risk: 9.2%. Prior Study Comparison: 09/29/2021 Bilateral Screening Mammogram, [facility]. 10/13/2022 Bilateral MG screening mammo w CAD, [facility]. 10/20/2024 Bilateral MG screening mammo w CAD, [facility]. Tissue Density: Left: The breasts are heterogeneously dense, which may obscure small masses. Findings: Analyzed By CAD. Area of concern/asymmetry compresses out on spot compression imaging. No suspicious masses, calcifications or distortions. Overall Assessment: Benign, BI-RAD 2 Management: Screening Mammogram of both breasts in 1 year. Results were given to the patient verbally at the time of exam. Patient should continue monthly self-breast exams. A clinical breast exam by your physician is recommended on an annual basis. This exam should not preclude additional follow-up of suspicious palpable abnormalities. Note on Hailee scores and lifetime risk: 1. A Hailee score greater than 3% is considered moderate risk. If this is the case, consider specialist referral to assess eligibility for a risk reducing agent. 2. If overall lifetime risk for the development of breast cancer is 20% or higher, the patient may qualify for future screening with alternating mammogram and breast MRI. [facility], , 10/25/2024 8:54 AM. Electronically signed and approved by: Bob Núñez DO
== END | disposition home or self-care (01) ==
LOC: RADMAMWWP 08:32
PROVIDERS: ATTEND Student in an Organized Health Care Education/Training Program
DX: R92.8 Other abnormal and inconclusive findings on diagnostic imaging of breast (principal); R92.2 Inconclusive mammogram; R92.333 Mammographic heterogeneous density, bilateral breasts; Z78.0 Asymptomatic menopausal state; Z80.3 Family history of malignant neoplasm of breast
CPT/HCPCS: 77065; G0279; 77061